=== PATIENT | male | born 1955 | race Two or more races ===

== ENCOUNTER → 2016-03-18 | Outpatient (CLI) | payer MEDICARE | LOC: RAD 11:14 | PROVIDERS: ATTEND Pain Medicine Pain Medicine | DX: M54.12 Radiculopathy, cervical region (principal) | CPT/HCPCS: 72141 ==

== ENCOUNTER 2016-11-24 17:10 | Inpatient (IN) | payer MEDICARE, OTHER ==
--- NOTE | 2016-11-24 18:10 | ER Document Report ---
ED Medical Screen (RME) - General Chief Complaint: Bloody Stools Stated Complaint: RECTAL BLEEDING,ABDOMINAL PAIN Time Seen by Provider: 11/24/16 18:07 Notes: Patient is a 61 year old male who presents to the ED complaining of blood in his stool, two episodes today. denies previous h/o GI bleed, hemorrhoids. denies n/v/d/c, abdominal pain h/o kidney stones TRAVEL OUTSIDE OF THE [place] IN LAST 30 DAYS: No - Related Data Allergies/Adverse Reactions: No Known Allergies Allergy (Verified 11/24/16 17:14) Past Medical History Renal/ Medical History: Reports: Hx Kidney Stones - Left ureteral. Denies: Hx Peritoneal Dialysis - Immunizations Hx Diphtheria, Pertussis, Tetanus Vaccination: Yes Physical Exam - Vital signs Vitals: Temp Pulse Resp BP Pulse Ox 98.6 F 62 14 122/80 98 11/24/16 17:14 11/24/16 17:14 11/24/16 17:14 11/24/16 17:14 11/24/16 17:14 - Respiratory Respiratory status: No respiratory distress Chest status: Nontender Breath sounds: Normal Chest palpation: Normal - Cardiovascular Rhythm: Regular Heart sounds: Normal auscultation, S1 appreciated, S2 appreciated Murmur: No - Abdominal Inspection: Normal Distension: No distension Bowel sounds: Normal Tenderness: Nontender Course - Vital Signs Vital signs: Temp Pulse Resp BP Pulse Ox 98.6 F 62 14 122/80 98 11/24/16 17:14 11/24/16 17:14 11/24/16 17:14 11/24/16 17:14 11/24/16 17:14
[2016-11-24 19:28] LABS: ABSOLUTE BASOPHILS # (AUTO) 0.1 10^3/uL (0.0-0.2); ABSOLUTE EOSINOPHILS # (AUTO) 0.3 10^3/uL (0.0-0.6); ABSOLUTE LYMPHOCYTES (AUTO) 2.2 10^3/uL (0.5-4.7); ABSOLUTE MONOCYTES (AUTO) 0.6 10^3/uL (0.1-1.4); ABSOLUTE NEUT (AUTO) 3.8 10^3/uL (1.7-8.2); BASOPHILS % (AUTO) 1.1 % (0-2); EOSINOPHILS % (AUTO) 4.4 % (0-6); HEMATOCRIT 43.4 % (37.9-51.0); HEMOGLOBIN 14.9 g/dL (13.5-17.0); HGB HCT DIFFERENCE 1.3; LYMPHOCYTES % (AUTO) 31.8 % (13-45); MEAN CORPUSCULAR HEMOGLOBIN 32.5 pg (27.0-33.4); MEAN CORPUSCULAR HGB CONC 34.4 g/dL (32.0-36.0); MEAN CORPUSCULAR VOLUME 94 fl (80-97); MONOCYTES % (AUTO) 8.9 % (3-13); RED BLOOD COUNT 4.59 10^6/uL (4.35-5.55); RED CELL DISTRIBUTION WIDTH 14.8 % (11.5-14.0); SEGMENTED NEUTROPHILS % (AUTO) 53.8 % (42-78)
[2016-11-24 19:47] LABS: ALANINE AMINOTRANSFERASE 30 U/L (21-72); ALBUMIN 4.3 g/dL (3.5-5.0); ALKALINE PHOSPHATASE 108 U/L (38-126); ANION GAP 9 (5-19); ASPARTATE AMINO TRANSFERASE 24 U/L (17-59); BILIRUBIN,DIRECT 0.3 mg/dL (0.0-0.4); BILIRUBIN,TOTAL 0.5 mg/dL (0.2-1.3); BLOOD UREA NITROGEN 25 mg/dL (7-20); CALCIUM 10.4 mg/dL (8.4-10.2); CARBON DIOXIDE 28 mmol/L (22-30); CHLORIDE 105 mmol/L (98-107); CREATININE RESULT 1.11 mg/dL (0.52-1.25); GLUCOSE 63 mg/dL (75-110); POTASSIUM 4.7 mmol/L (3.6-5.0); SODIUM 142.2 mmol/L (137-145); TOTAL PROTEIN 7.2 g/dL (6.3-8.2)
[2016-11-24 19:54] LABS: LIPASE 2217.7 U/L (23-300)
[2016-11-24] MEDS ORDERED: NORMAL SALINE 1000 ML 2,000 ML IV ONE (21:33)
--- NOTE | 2016-11-24 21:35 | ER Document Report ---
ED General - General Chief Complaint: Bloody Stools Stated Complaint: RECTAL BLEEDING,ABDOMINAL PAIN Time Seen by Provider: 11/24/16 18:07 Notes: Patient is a 61-year-old male who presents emergency department complaining of 2 episodes of bright red bloody stools today. Patient states that he felt uncomfortable this afternoon with mild abdominal discomfort went to the bathroom and had 2 episodes of bright red blood in his stool. Otherwise he denies any vomiting, nausea, diarrhea or constipation. Patient states that he has had 2 normal bowel movements yesterday. Otherwise he denies any other recent illnesses. He states a couple of days ago he had left flank pain that was uncomfortable and consistent with his previous history of kidney stones. States he had 2 episodes of hematuria that have since resolved and he speculated that he is passed stone. Otherwise denies any fevers or chills. Otherwise healthy male and he follows with Dr. Aguirre for primary care TRAVEL OUTSIDE OF THE [place] IN LAST 30 DAYS: No - Related Data Allergies/Adverse Reactions: No Known Allergies Allergy (Verified 11/24/16 17:14) Past Medical History - Social History Smoking Status: Never Smoker Chew tobacco use (# tins/day): No Frequency of alcohol use: None Drug Abuse: None Family History: Reviewed & Not Pertinent Renal/ Medical History: Reports: Hx Kidney Stones - Left ureteral. Denies: Hx Peritoneal Dialysis Surgical Hx: Negative - Immunizations Hx Diphtheria, Pertussis, Tetanus Vaccination: Yes Review of Systems - Review of Systems Constitutional: No symptoms reported Gastrointestinal: See HPI Genitourinary: See HPI -: Yes All other systems reviewed and negative Physical Exam - Vital signs Vitals: Temp Pulse Resp BP Pulse Ox 98.6 F 62 14 122/80 98 11/24/16 17:14 11/24/16 17:14 11/24/16 17:14 11/24/16 17:14 11/24/16 17:14 - Notes Notes: PHYSICAL EXAM GENERAL: Alert, interacts well. HEAD: Normocephalic, atraumatic. EYES: Pupils equal, round, and reactive to light. Extraocular movements intact. ENT: Oral mucosa moist, tongue midline. NECK: Full range of motion. Supple. Trachea midline. LUNGS: Clear to auscultation bilaterally, no wheezes, rales, or rhonchi. No respiratory distress. HEART: Regular rate and rhythm. No murmurs, gallops, or rubs. ABDOMEN: Soft, nondistended, nontender. No guarding, rebound, or rigidity.. Bowel sounds present in all 4 quadrants. Rectal: No evidence of blood or hemorrhoids. Nontender to palpation. Anal sphincter tone intact. See lab results for stool guaiac EXTREMITIES: Moves all 4 extremities spontaneously. No edema, radial and dorsalis pedis pulses 2/4 bilaterally. No cyanosis. NEUROLOGICAL: Alert and oriented x4. Normal speech. PSYCH: Normal affect, normal mood. SKIN: Warm, dry, normal turgor. No rashes or lesions noted. Course - Re-evaluation Re-evalutation: 11/24/16 21:35 Patient is a 61-year-old male who is hemodynamically stable, no acute distress and afebrile. CBC without any evidence of leukocytosis or anemia. CMP without any evidence of abnormality and electrolytes, abnormalities in liver renal function. Lipase is elevated at 2200. Otherwise unremarkable . Patient to be sent for an ultrasound of the right upper quadrant and admit to primary care 11/24/16 21:39 Patient has been accepted by Dr. Aguirre for admission. Patient to be kept n.p.o. and admitted to [facility]. - Vital Signs Vital signs: Temp Pulse Resp BP Pulse Ox 98.6 F 62 20 149/92 H 100 11/24/16 17:14 11/24/16 17:14 11/25/16 00:13 11/25/16 00:13 11/25/16 00:13 - Laboratory Result Diagrams: 11/24/16 18:50 11/24/16 18:50 Laboratory results interpreted by me: 11/24/16 11/24/16 18:50 18:50 RDW 14.8 H BUN 25 H Glucose 63 L Calcium 10.4 H Lipase 2217.7 H - Diagnostic Test Radiology reviewed: Reports reviewed Discharge - Discharge Clinical Impression: Pancreatitis Qualifiers: Chronicity: acute Pancreatitis type: unspecified pancreatitis type Acute pancreatitis complication: unspecified Qualified Code(s): K85.90 - Acute pancreatitis without necrosis or infection, unspecified Condition: Stable Disposition: ADMITTED INPATIENT Admitting Provider: Hospitalist - Carla [facility] Admitted: [facility]
--- NOTE | 2016-11-24 23:36 | RADIOLOGY REPORT (SQ) ---
EXAM DESCRIPTION: U/S ABDOMEN LTD W/DOPPLER COMPLETED DATE/TIME: 11/24/2016 11:18 pm REASON FOR STUDY: elevated lipase COMPARISON: None. TECHNIQUE: Dynamic and static grayscale images acquired of the abdomen and recorded on PACS. Additio nal selected color Doppler and spectral images recorded. LIMITATIONS: None. FINDINGS: PANCREAS: The pancreas was incompletely visualized due to overlying bowel gas. The visual ized portions of the head and body of the pancreas showed no definite masses. LIVER: No masses. Echotexture normal. LIVER VASCULATURE: Normal blood flow is identified in the portal vein. GALLBLADDER: No stones. Normal wall thickness. No pericholecystic fluid. ULTRASOUND-DETECTED NASCIMENTO'S SIGN: Negative. INTRAHEPATIC DUCTS AND COMMON DUCT: CBD and intrahepatic ducts normal caliber. No filling defects. INFERIOR VENA CAVA: Normal flow. AORTA: No aneurysm. RIGHT KIDNEY: Normal size. Normal echogenicity. No solid or suspicious masses. No hydronephrosis. S mall echogenic focus is identified which I cannot exclude as a nonobstructing renal calculus PERITONEAL AND RIGHT PLEURAL SPACE: No ascites or effusions. OTHER: No other significant findings. IMPRESSION: The pancreas was incompletely visualized as noted above. Echogenic focus in the right k idney which I cannot exclude is a nonobstructing renal calculus. Other findings as noted above TECHNICAL DOCUMENTATION: JOB ID: [id number]- All Rights Reserved
[2016-11-24 23:44] LABS: MAGNESIUM 1.9 mg/dL (1.6-2.3); PHOSPHORUS 4.3 mg/dL (2.5-4.5)
[2016-11-24] MEDS: POTASSI CL 20 MEQ/D5-1/2NS 1L 1,000 ML IV PRN (23:50)
[2016-11-25 00:01] LABS: PROTHROMBIN TIME 13.6 SEC (11.4-15.4)
[2016-11-25 00:02] LABS: PARTIAL THROMBOPLASTIN TIME 34.1 SEC (23.5-35.8)
[2016-11-25 00:14] LABS: THYROID STIMULATING HORMONE 1.48 uIU/mL (0.47-4.68)
[2016-11-25 00:23] LABS: CREATINE KINASE MB 1.39 ng/mL (<4.55)
[2016-11-25 00:24] LABS: TROPONIN I < 0.012 ng/mL
[2016-11-25 01:51] LABS: APPEARANCE,URINE CLEAR; BILIRUBIN,URINE NEGATIVE (NEGATIVE); GLUCOSE, URINE NEGATIVE (NEGATIVE); KETONES,URINE TRACE mg/dL (NEGATIVE); LEUKOCYTE ESTERASE,URINE NEGATIVE (NEGATIVE); NITRITE,URINE NEGATIVE (NEGATIVE); PROTEIN,URINE NEGATIVE (NEGATIVE); URINE SPECIFIC GRAVITY 1.006; UROBILINOGEN,URINE NEGATIVE mg/dL (<2.0)
[2016-11-25 02:08] LABS: URINE BARBITURATES SCREEN NEGATIVE; URINE METHADONE SCREEN NEGATIVE; URINE OPIATES LOW NEGATIVE; URINE PHENCYCLIDINE SCREEN NEGATIVE
[2016-11-25] MEDS: HYDROMORPHONE HCL INJ/PF 2 MG/ML AMPULE IV PRN ×3 (02:09→13:19)
--- NOTE | 2016-11-25 04:32 | RADIOLOGY REPORT (SQ) ---
EXAM DESCRIPTION: CT ABD/PELVIS WITH IV ONLY COMPLETED DATE/TIME: 11/25/2016 1:31 am REASON FOR STUDY: ABDOMINAL PAIN COMPARISON: None. TECHNIQUE: CT scan of the abdomen and pelvis performed using helical scanning technique with dynamic intravenous contrast injection. No oral contrast. Images reviewed with lung, soft tissue, and bone windows. Reconstructed coronal and sagittal MPR images reviewed. Delayed images for evaluation of the urinary system also acquired. All images stored on PACS. All CT scanners at this facility use dose modulation, iterative reconstruction, and/or weight based d osing when appropriate to reduce radiation dose to as low as reasonably achievable (ALARA). [facility]: Dose Right [facility]: CareDose [facility]: Dose Right [facility]: Teradose 4D [facility]: [employer] CONTRAST TYPE AND DOSE: contrast/concentration: Isovue 370.00 mg/ml; Total Contrast Delivered: 77.0 ml; Total Saline Delivered: 67.0 ml RENAL FUNCTION: Creatinine 1.1 RADIATION DOSE: Up-to-date CT equipment and radiation dose reduction techniques were employed. CTDIv ol: 8.8 mGy. DLP: 949 mGy-cm.. LIMITATIONS: None. FINDINGS: LOWER CHEST: No significant findings. No nodules or infiltrates. Small atelectasis or sca r bilateral lung bases. LIVER: Normal size. No masses. No dilated ducts. SPLEEN: Normal size. No focal lesions. PANCREAS: No masses. No significant calcifications. No adjacent inflammation or peripancreatic fluid collections. Pancreatic duct not dilated. GALLBLADDER: No identified stones by CT criteria. No inflammatory changes to suggest cholecystitis. Mildly hydropic. ADRENAL GLANDS: No significant masses or asymmetry. RIGHT KIDNEY AND URETER: No solid masses. Several renal stones measuring up to 0.4 cm each. No hy dronephrosis or hydroureter. LEFT KIDNEY AND URETER: 0.4 cm left UVJ-bladder stone with mild -moderate left hydronephrosis -hydrou reter. Additional left renal stones measure up to 0.6 cm each. AORTA AND VESSELS: No aneurysm. No dissection. Renal arteries, SMA, celiac without stenosis. RETROPERITONEUM: No retroperitoneal adenopathy, hemorrhage or masses. BOWEL AND PERITONEAL CAVITY: No masses or inflammatory changes. No free fluid or peritoneal masses. APPENDIX: Normal. PELVIS: No mass. No free fluid. ABDOMINAL WALL: No masses. No hernias. BONES: Mild disc desiccation. Mild T12 and T11 anterior vertebral wedging. Moderate L4-5 disc desic cation. OTHER: No other significant finding. IMPRESSION: 0.4 cm left UVJ/ bladder stone with low-grade obstruction. Bilateral nephrolithiasis. TECHNICAL DOCUMENTATION: JOB ID: [id number] Quality ID # [id number]: Final reports with documentation of one or more dose reduction techniques (e.g., Au tomated exposure control, adjustment of the mA and/or kV according to patient size, use of iterative reconstruction technique) 2010 [employer]- All Rights Reserved
[2016-11-25 06:51] LABS: WHITE BLOOD COUNT 8.5 10^3/uL (4.0-10.5)
[2016-11-25 06:52] LABS: HEMATOCRIT 39.4 % (37.9-51.0); HGB HCT DIFFERENCE 2.6; MEAN CORPUSCULAR HEMOGLOBIN 32.8 pg (27.0-33.4); MEAN CORPUSCULAR VOLUME 93 fl (80-97); RED BLOOD COUNT 4.25 10^6/uL (4.35-5.55)
[2016-11-25 06:53] LABS: ABSOLUTE BASOPHILS # (AUTO) 0.1 10^3/uL (0.0-0.2); ABSOLUTE EOSINOPHILS # (AUTO) 0.3 10^3/uL (0.0-0.6); ABSOLUTE LYMPHOCYTES (AUTO) 2.7 10^3/uL (0.5-4.7); ABSOLUTE MONOCYTES (AUTO) 0.8 10^3/uL (0.1-1.4); ABSOLUTE NEUT (AUTO) 4.6 10^3/uL (1.7-8.2); BASOPHILS % (AUTO) 0.8 % (0-2); EOSINOPHILS % (AUTO) 3.9 % (0-6); LYMPHOCYTES % (AUTO) 31.9 % (13-45); MEAN CORPUSCULAR HGB CONC 35.5 g/dL (32.0-36.0); MONOCYTES % (AUTO) 8.9 % (3-13); RED CELL DISTRIBUTION WIDTH 14.4 % (11.5-14.0); SEGMENTED NEUTROPHILS % (AUTO) 54.5 % (42-78)
[2016-11-25 06:54] LABS: ALANINE AMINOTRANSFERASE 35 U/L (21-72); ALBUMIN 3.6 g/dL (3.5-5.0); ALKALINE PHOSPHATASE 100 U/L (38-126); AMYLASE 452 U/L (30-110); ANION GAP 7 (5-19); ASPARTATE AMINO TRANSFERASE 22 U/L (17-59); BILIRUBIN,DIRECT 0.3 mg/dL (0.0-0.4); BILIRUBIN,TOTAL 0.6 mg/dL (0.2-1.3); BLOOD UREA NITROGEN 18 mg/dL (7-20); CALCIUM 9.1 mg/dL (8.4-10.2); CARBON DIOXIDE 23 mmol/L (22-30); CHLORIDE 111 mmol/L (98-107); CHOLESTEROL 164.36 mg/dL (0-200); CREATINE KINASE 58 U/L (55-170); Direct HDL 42 mg/dL (>40); GLUCOSE 101 mg/dL (75-110); POTASSIUM 4.4 mmol/L (3.6-5.0); SODIUM 140.5 mmol/L (137-145); TOTAL PROTEIN 6.2 g/dL (6.3-8.2); TRIGLYCERIDES 94 mg/dL (<150)
[2016-11-25 07:05] LABS: DIRECT LDL 108 mg/dL (<100)
[2016-11-25 07:06] LABS: CREATINE KINASE MB 1.44 ng/mL (<4.55)
[2016-11-25 07:11] LABS: TROPONIN I < 0.012 ng/mL
[2016-11-25 07:15] LABS: LIPASE 9918.7 U/L (23-300)
[2016-11-25] MEDS: POTASSI CL 20 MEQ/D5-1/2NS 1L 1,000 ML IV PRN ×2 (13:22→22:52)
[2016-11-25] MEDS: ONDANSETRON HCL INJ/PF 4 MG/2 ML SDV IV PRN ×2 (14:09→22:52)
[2016-11-25 15:22] LABS: CREATINE KINASE MB 1.47 ng/mL (<4.55)
[2016-11-25 15:40] LABS: TROPONIN I < 0.012 ng/mL
--- NOTE | 2016-11-25 20:23 | PDOC H&P ---
History of Present Illness Admission Date/PCP: 11/24/16 22:54 YAN TOM MD History of Present Illness: SEVERIANO SEGUNDO is a 61 year old male, He came to the emergency room for evaluation of abdominal pain associated with passage of rosana hematochezia. He stated that he had episode of hematochezia, twice, the pain is in the upper abdomen. He also have a history of kidney stone and he recently had hematuria and he believed he passed a kidney stone. In the emergency room he was evaluated part of the evaluation included measurement of serum lipase, this was elevated at over 2000. The emergency room providers want patient admitted because of elevated serum lipase in the setting of abdominal pain, acute pancreatitis was suspected. I was called by the emergency room physician to have patient admitted to the hospital and I requested for a CAT scan of the abdomen and pelvis with IV contrast it showed normal-sized liver, normal-sized spleen, on the pancreas there was no masses there was no calcifications there was no adjacent inflammation or peripancreatic fluid collection the pancreatic duct not dilated, on the right kidney there is no solid masses there was several renal stones measuring up to 0.4 cm each there was no hydroureter or hydronephrosis. On the left kidney there was 0.4 cm left UVJ bladder stone with mild to moderate left hydronephrosis/hydroureter also found was a other left renal stones measures up to 0.6 cm each. Subsequent lipase that was drawn this morning has increased over 9000 from 2000 last night. Past Medical History Renal/ Medical History: Reports: Nephrolithiasis Psychiatric Medical History: Reports: Depression Social History Smoking Status: Never Smoker Frequency of Alcohol Use: None Hx Recreational Drug Use: No Drugs: None Hx Prescription Drug Abuse: No Family History Family History: Reviewed & Not Pertinent Parental Family History Reviewed: Yes Children Family History Reviewed: Yes Sibling(s) Family History Reviewed.: Yes Medication/Allergy Home Medications: Aspirin [Aspirin 81 mg Chewable Tablet] 81 mg PO DAILY 11/25/16 Citalopram Hydrobromide [Celexa 40 mg Tablet] 40 mg PO DAILY 11/25/16 Meloxicam [Mobic] 7.5 mg PO DAILY 11/25/16 Montelukast Sodium [Singulair 10 mg Tablet] 10 mg PO QHS 11/25/16 Multivitamin [Tab-A-Ti (Multiple Vitamin) Tablet] 1 tab PO DAILY 11/25/16 Oxycodone HCl/Acetaminophen [Percocet 10-325 Mg Tablet] 1 tab PO Q6HP PRN Tizanidine HCl [Zanaflex 4 Mg Tablet] 4 mg PO Q6HP PRN 11/25/16 Allergies/Adverse Reactions: No Known Allergies Allergy (Verified 11/24/16 17:14) Review of Systems Constitutional: ABSENT: chills, fever(s), headache(s), weight gain, weight loss Eyes: ABSENT: visual disturbances Ears: ABSENT: hearing changes Cardiovascular: ABSENT: chest pain, dyspnea on exertion, edema, orthropnea, palpitations Respiratory: ABSENT: cough, hemoptysis Gastrointestinal: PRESENT: abdominal pain, hematochezia Genitourinary: PRESENT: hematuria Musculoskeletal: ABSENT: joint swelling Integumentary: ABSENT: rash, wounds Neurological: ABSENT: abnormal gait, abnormal speech, confusion, dizziness, focal weakness, syncope Psychiatric: ABSENT: anxiety, depression, homidical ideation, suicidal ideation Endocrine: ABSENT: cold intolerance, heat intolerance, menstrual abnormalities, polydipsia, polyuria Hematologic/Lymphatic: ABSENT: easy bleeding, easy bruising, lymphadenopathy Physical Exam Vital Signs: Temp Pulse Resp BP Pulse Ox 97.3 F 52 L 20 139/74 H 99 11/25/16 15:44 11/25/16 19:42 11/25/16 15:44 11/25/16 15:44 11/25/16 15:44 Intake & Output 11/24/16 11/25/16 11/26/16 06:59 06:59 06:59 Intake Total 470 1298 Output Total 600 300 Balance -130 998 Weight 71 kg General appearance: PRESENT: mild distress Head exam: PRESENT: atraumatic, normocephalic Eye exam: PRESENT: conjunctiva pink, EOMI, PERRLA Ear exam: PRESENT: normal external ear exam Mouth exam: PRESENT: moist, tongue midline Neck exam: PRESENT: full ROM Respiratory exam: PRESENT: clear to auscultation [place] Cardiovascular exam: PRESENT: RRR, +S1, +S2 Pulses: PRESENT: normal dorsalis pedis pul, +2 pedal pulses bilateral Vascular exam: PRESENT: normal capillary refill GI/Abdominal exam: PRESENT: normal bowel sounds, soft, tenderness Rectal exam: PRESENT: deferred Neurological exam: PRESENT: alert, awake, oriented to person, oriented to place , oriented to time, oriented to situation, CN II-XII grossly intact. ABSENT: motor sensory deficit Psychiatric exam: PRESENT: appropriate affect, normal mood Skin exam: PRESENT: dry, intact, warm Results Laboratory Results: 11/25/16 06:30 11/25/16 06:30 11/24/16 11/25/16 11/25/16 23:41 01:30 06:30 WBC RBC Hgb Hct MCV MCH MCHC RDW Plt Count Seg Neutrophils % Lymphocytes % Monocytes % Eosinophils % Basophils % Absolute Neutrophils Absolute Lymphocytes Absolute Monocytes Absolute Eosinophils Absolute Basophils Sodium 140.5 Potassium 4.4 Chloride 111 H Carbon Dioxide 23 Anion Gap 7 BUN 18 Creatinine 0.80 Est GFR ( Amer) > 60 Est GFR (Non-Af Amer) > 60 Glucose 101 Calcium 9.1 Total Bilirubin 0.6 AST 22 ALT 35 Alkaline Phosphatase 100 Ammonia < 8.7 L Total Protein 6.2 L Albumin 3.6 Triglycerides 94 Cholesterol 164.36 LDL Cholesterol Direct 108 H VLDL Cholesterol 19.0 HDL Cholesterol 42 Amylase 452 H Lipase 9918.7 H Urine Color STRAW Urine Appearance CLEAR Urine pH 7.0 Ur Specific [place] 1.006 Urine Protein NEGATIVE Urine Glucose (UA) NEGATIVE Urine Ketones TRACE H Urine Blood NEGATIVE Urine Nitrite NEGATIVE Ur Leukocyte Esterase NEGATIVE Urine WBC (Auto) 1 Urine RBC (Auto) 1 11/25/16 06:30 WBC 8.5 RBC 4.25 L Hgb 14.0 Hct 39.4 MCV 93 MCH 32.8 MCHC 35.5 RDW 14.4 H Plt Count 231 Seg Neutrophils % 54.5 Lymphocytes % 31.9 Monocytes % 8.9 Eosinophils % 3.9 Basophils % 0.8 Absolute Neutrophils 4.6 Absolute Lymphocytes 2.7 Absolute Monocytes 0.8 Absolute Eosinophils 0.3 Absolute Basophils 0.1 Sodium Potassium Chloride Carbon Dioxide Anion Gap BUN Creatinine Est GFR ( Amer) Est GFR (Non-Af Amer) Glucose Calcium Total Bilirubin AST ALT Alkaline Phosphatase Ammonia Total Protein Albumin Triglycerides Cholesterol LDL Cholesterol Direct VLDL Cholesterol HDL Cholesterol Amylase Lipase Urine Color Urine Appearance Urine pH Ur Specific [place] Urine Protein Urine Glucose (UA) Urine Ketones Urine Blood Urine Nitrite Ur Leukocyte Esterase Urine WBC (Auto) Urine RBC (Auto) 11/24/16 11/24/16 11/25/16 23:41 23:41 06:30 Creatine Kinase 61 58 CK-MB (CK-2) 1.39 Troponin I < 0.012 11/25/16 11/25/16 11/25/16 06:30 13:18 13:18 Creatine Kinase 61 CK-MB (CK-2) 1.44 1.47 Troponin I < 0.012 < 0.012 Impressions: Abdomen Ultrasound 11/24/16 21:10 IMPRESSION: The pancreas was incompletely visualized as noted above. Echogenic focus in the right kidney which I cannot exclude is a nonobstructing renal calculus. Other findings as noted above Abdomen/Pelvis CT 11/25/16 00:00 IMPRESSION: 0.4 cm left UVJ/ bladder stone with low-grade obstruction. Bilateral nephrolithiasis. Assessment & Plan - Diagnosis (1) Acute pancreatitis Qualifiers: Pancreatitis type: unspecified pancreatitis type Acute pancreatitis complication: no infection or necrosis Qualified Code(s): K85.90 - Acute pancreatitis without necrosis or infection, unspecified Is this a current diagnosis for this admission?: Yes Plan: Patient have no gallstones, he has no history of alcohol abuse or dependence, patient have no history of hypertriglyceridemia, patient is not on any medication known to cause acute pancreatitis, the CAT scan did not show any necrosis, infection or complication of pancreatitis. The exact etiology of the acute pancreatitis is not clear Patient will be kept n.p.o., serial monitoring of lipase ,pain control with Dilaudid (2) Ureteropelvic junction calculus Is this a current diagnosis for this admission?: Yes Plan: The CAT scan showed 6 mm calculus in the vesicular ureteric junction associated with left hydronephrosis, 24-hour urine collection for metabolites no acute colic kidney stone will be ordered (3) Hydronephrosis, left Is this a current diagnosis for this admission?: Yes
[2016-11-26] MEDS: HYDROMORPHONE HCL INJ/PF 2 MG/ML AMPULE IV PRN ×3 (00:07→15:52)
[2016-11-26 05:00] LABS: ABSOLUTE BASOPHILS # (AUTO) 0.1 10^3/uL (0.0-0.2); ABSOLUTE EOSINOPHILS # (AUTO) 0.2 10^3/uL (0.0-0.6); ABSOLUTE LYMPHOCYTES (AUTO) 2.2 10^3/uL (0.5-4.7); ABSOLUTE MONOCYTES (AUTO) 0.8 10^3/uL (0.1-1.4); ABSOLUTE NEUT (AUTO) 5.4 10^3/uL (1.7-8.2); BASOPHILS % (AUTO) 0.6 % (0-2); EOSINOPHILS % (AUTO) 1.8 % (0-6); HEMATOCRIT 40.2 % (37.9-51.0); HEMOGLOBIN 13.9 g/dL (13.5-17.0); HGB HCT DIFFERENCE 1.5; MEAN CORPUSCULAR HEMOGLOBIN 32.5 pg (27.0-33.4); MEAN CORPUSCULAR HGB CONC 34.5 g/dL (32.0-36.0); MEAN CORPUSCULAR VOLUME 94 fl (80-97); MONOCYTES % (AUTO) 8.8 % (3-13); RED BLOOD COUNT 4.28 10^6/uL (4.35-5.55); RED CELL DISTRIBUTION WIDTH 14.4 % (11.5-14.0); SEGMENTED NEUTROPHILS % (AUTO) 62.8 % (42-78); WHITE BLOOD COUNT 8.6 10^3/uL (4.0-10.5)
[2016-11-26 05:08] LABS: ALANINE AMINOTRANSFERASE 28 U/L (21-72); ALBUMIN 3.7 g/dL (3.5-5.0); ALKALINE PHOSPHATASE 101 U/L (38-126); AMYLASE 259 U/L (30-110); ANION GAP 8 (5-19); ASPARTATE AMINO TRANSFERASE 21 U/L (17-59); BILIRUBIN,DIRECT 0.3 mg/dL (0.0-0.4); BILIRUBIN,TOTAL 0.5 mg/dL (0.2-1.3); BLOOD UREA NITROGEN 12 mg/dL (7-20); CALCIUM 9.7 mg/dL (8.4-10.2); CARBON DIOXIDE 23 mmol/L (22-30); CHLORIDE 108 mmol/L (98-107); CREATININE RESULT 0.73 mg/dL (0.52-1.25); GLUCOSE 105 mg/dL (75-110); POTASSIUM 4.5 mmol/L (3.6-5.0); SODIUM 138.5 mmol/L (137-145); TOTAL PROTEIN 6.4 g/dL (6.3-8.2)
[2016-11-26 05:24] LABS: LIPASE 3098.4 U/L (23-300)
[2016-11-26] MEDS: POTASSI CL 20 MEQ/D5-1/2NS 1L 1,000 ML IV PRN ×2 (11:42→23:34)
--- NOTE | 2016-11-26 14:56 | PDOC PROGRESS REPORT ---
Subjective Progress Note for:: 11/26/16 Subjective:: He was admitted yesterday for the management of acute pancreatitis, the serum lipase is down today to 3000, patient is still n.p.o. He also have kidney stone presently been evaluated for metabolic cause of the recurrent kidney stone 24 urine collection is in progress. Physical Exam Vital Signs: Temp Pulse Resp BP Pulse Ox 97.9 F 58 L 22 H 141/79 H 97 11/26/16 11:12 11/26/16 11:12 11/26/16 11:12 11/26/16 11:12 11/26/16 11:12 Intake & Output 11/25/16 11/26/16 11/27/16 06:59 06:59 06:59 Intake Total 470 2416 0 Output Total 600 1400 250 Balance -130 1016 -250 Weight 71 kg 70.3 kg General appearance: PRESENT: no acute distress, well-developed, well-nourished Head exam: PRESENT: atraumatic, normocephalic Ear exam: PRESENT: normal external ear exam Mouth exam: PRESENT: moist, tongue midline Neck exam: PRESENT: full ROM Respiratory exam: PRESENT: clear to auscultation [place] Cardiovascular exam: PRESENT: RRR, +S1, +S2 Pulses: PRESENT: normal dorsalis pedis pul, +2 pedal pulses bilateral Vascular exam: PRESENT: normal capillary refill GI/Abdominal exam: PRESENT: normal bowel sounds, soft Rectal exam: PRESENT: deferred Neurological exam: PRESENT: alert, awake, oriented to person, oriented to place , oriented to time, oriented to situation, CN II-XII grossly intact Psychiatric exam: PRESENT: appropriate affect, normal mood Skin exam: PRESENT: dry, intact, warm Results Laboratory Results: 11/26/16 04:24 11/26/16 04:24 11/26/16 11/26/16 04:24 04:24 WBC 8.6 RBC 4.28 L Hgb 13.9 Hct 40.2 MCV 94 MCH 32.5 MCHC 34.5 RDW 14.4 H Plt Count 232 Seg Neutrophils % 62.8 Lymphocytes % 26.0 Monocytes % 8.8 Eosinophils % 1.8 Basophils % 0.6 Absolute Neutrophils 5.4 Absolute Lymphocytes 2.2 Absolute Monocytes 0.8 Absolute Eosinophils 0.2 Absolute Basophils 0.1 Sodium 138.5 Potassium 4.5 Chloride 108 H Carbon Dioxide 23 Anion Gap 8 BUN 12 Creatinine 0.73 Est GFR ( Amer) > 60 Est GFR (Non-Af Amer) > 60 Glucose 105 Calcium 9.7 Total Bilirubin 0.5 AST 21 ALT 28 Alkaline Phosphatase 101 Total Protein 6.4 Albumin 3.7 Amylase 259 H Lipase 3098.4 H 11/24/16 11/24/16 11/25/16 23:41 23:41 06:30 Creatine Kinase 61 58 CK-MB (CK-2) 1.39 Troponin I < 0.012 11/25/16 11/25/16 11/25/16 06:30 13:18 13:18 Creatine Kinase 61 CK-MB (CK-2) 1.44 1.47 Troponin I < 0.012 < 0.012 Impressions: Abdomen Ultrasound 11/24/16 21:10 IMPRESSION: The pancreas was incompletely visualized as noted above. Echogenic focus in the right kidney which I cannot exclude is a nonobstructing renal calculus. Other findings as noted above Abdomen/Pelvis CT 11/25/16 00:00 IMPRESSION: 0.4 cm left UVJ/ bladder stone with low-grade obstruction. Bilateral nephrolithiasis. Assessment & Plan - Diagnosis (1) Acute pancreatitis Qualifiers: Pancreatitis type: unspecified pancreatitis type Acute pancreatitis complication: no infection or necrosis Qualified Code(s): K85.90 - Acute pancreatitis without necrosis or infection, unspecified Is this a current diagnosis for this admission?: Yes Plan: Continue n.p.o., continue IV fluid, continue pain management (2) Ureteropelvic junction calculus Is this a current diagnosis for this admission?: Yes (3) Hydronephrosis, left Is this a current diagnosis for this admission?: Yes
[2016-11-26] MEDS ORDERED: ACETAMINOPHEN 325 MG TABLET ONE (17:56)
[2016-11-26] MEDS: ONDANSETRON HCL INJ/PF 4 MG/2 ML SDV IV PRN (18:10)
[2016-11-27] MEDS: HYDROMORPHONE HCL INJ/PF 2 MG/ML AMPULE IV PRN ×4 (02:55→23:18)
[2016-11-27] MEDS: ONDANSETRON HCL INJ/PF 4 MG/2 ML SDV IV PRN ×3 (03:04→23:18)
[2016-11-27 05:26] LABS: ABSOLUTE BASOPHILS # (AUTO) 0.1 10^3/uL (0.0-0.2); ABSOLUTE EOSINOPHILS # (AUTO) 0.2 10^3/uL (0.0-0.6); ABSOLUTE MONOCYTES (AUTO) 0.8 10^3/uL (0.1-1.4); ABSOLUTE NEUT (AUTO) 6.2 10^3/uL (1.7-8.2); BASOPHILS % (AUTO) 0.6 % (0-2); EOSINOPHILS % (AUTO) 2.3 % (0-6); HEMATOCRIT 42.2 % (37.9-51.0); HEMOGLOBIN 14.7 g/dL (13.5-17.0); HGB HCT DIFFERENCE 1.9; LYMPHOCYTES % (AUTO) 21.6 % (13-45); MEAN CORPUSCULAR HEMOGLOBIN 32.7 pg (27.0-33.4); MEAN CORPUSCULAR HGB CONC 34.8 g/dL (32.0-36.0); MEAN CORPUSCULAR VOLUME 94 fl (80-97); MONOCYTES % (AUTO) 8.3 % (3-13); RED CELL DISTRIBUTION WIDTH 14.3 % (11.5-14.0); SEGMENTED NEUTROPHILS % (AUTO) 67.2 % (42-78); WHITE BLOOD COUNT 9.1 10^3/uL (4.0-10.5)
[2016-11-27 05:47] LABS: ALANINE AMINOTRANSFERASE 32 U/L (21-72); ALBUMIN 4.3 g/dL (3.5-5.0); ALKALINE PHOSPHATASE 112 U/L (38-126); AMYLASE 180 U/L (30-110); ANION GAP 9 (5-19); ASPARTATE AMINO TRANSFERASE 24 U/L (17-59); BILIRUBIN,DIRECT 0.3 mg/dL (0.0-0.4); BILIRUBIN,TOTAL 0.6 mg/dL (0.2-1.3); BLOOD UREA NITROGEN 10 mg/dL (7-20); CALCIUM 9.9 mg/dL (8.4-10.2); CARBON DIOXIDE 27 mmol/L (22-30); CHLORIDE 105 mmol/L (98-107); CREATININE RESULT 0.83 mg/dL (0.52-1.25); GLUCOSE 111 mg/dL (75-110); POTASSIUM 4.6 mmol/L (3.6-5.0); SODIUM 141.1 mmol/L (137-145)
[2016-11-27] MEDS: POTASSI CL 20 MEQ/D5-1/2NS 1L 1,000 ML IV PRN ×2 (09:19→20:01)
--- NOTE | 2016-11-27 12:27 | PDOC PROGRESS REPORT ---
Subjective Progress Note for:: 11/27/16 Subjective:: Patient was seen by the bedside, the lipase from today's lab work is 2087, he has been n.p.o. since admission we will challenge his GI tract with clear liquid diet Physical Exam Vital Signs: Temp Pulse Resp BP Pulse Ox 97.9 F 53 L 20 150/80 H 93 11/27/16 11:47 11/27/16 11:47 11/27/16 11:47 11/27/16 11:47 11/27/16 11:47 Intake & Output 11/26/16 11/27/16 11/28/16 06:59 06:59 06:59 Intake Total 2416 2100 0 Output Total 1400 2050 Balance 1016 50 0 Weight 70.3 kg 68.3 kg General appearance: PRESENT: no acute distress Eye exam: PRESENT: PERRLA Respiratory exam: PRESENT: clear to auscultation aparna Cardiovascular exam: PRESENT: +S1, +S2 GI/Abdominal exam: PRESENT: soft Neurological exam: PRESENT: alert, CN II-XII grossly intact Results Laboratory Results: 11/27/16 04:47 11/27/16 04:47 11/27/16 11/27/16 04:47 04:47 WBC 9.1 RBC 4.50 Hgb 14.7 Hct 42.2 MCV 94 MCH 32.7 MCHC 34.8 RDW 14.3 H Plt Count 230 Seg Neutrophils % 67.2 Lymphocytes % 21.6 Monocytes % 8.3 Eosinophils % 2.3 Basophils % 0.6 Absolute Neutrophils 6.2 Absolute Lymphocytes 2.0 Absolute Monocytes 0.8 Absolute Eosinophils 0.2 Absolute Basophils 0.1 Sodium 141.1 Potassium 4.6 Chloride 105 Carbon Dioxide 27 Anion Gap 9 BUN 10 Creatinine 0.83 Est GFR ( Amer) > 60 Est GFR (Non-Af Amer) > 60 Glucose 111 H Calcium 9.9 Total Bilirubin 0.6 AST 24 ALT 32 Alkaline Phosphatase 112 Total Protein 7.0 Albumin 4.3 Amylase 180 H Lipase 8.0 H 11/25/16 01:30 Clean Catch Midstream Urine Culture - Final NO GROWTH 2 DAYS 11/24/16 11/24/16 11/25/16 23:41 23:41 06:30 Creatine Kinase 61 58 CK-MB (CK-2) 1.39 Troponin I < 0.012 11/25/16 11/25/1611/25/17 06:30 13:18 13:18 Creatine Kinase 61 CK-MB (CK-2) 1.44 1.47 Troponin I < 0.012 < 0.012 Impressions: Abdomen Ultrasound 11/24/16 21:10 IMPRESSION: The pancreas was incompletely visualized as noted above. Echogenic focus in the right kidney which I cannot exclude is a nonobstructing renal calculus. Other findings as noted above Abdomen/Pelvis CT 11/25/16 00:00 IMPRESSION: 0.4 cm left UVJ/ bladder stone with low-grade obstruction. Bilateral nephrolithiasis. Assessment & Plan - Diagnosis (1) Acute pancreatitis Qualifiers: Pancreatitis type: unspecified pancreatitis type Acute pancreatitis complication: no infection or necrosis Qualified Code(s): K85.90 - Acute pancreatitis without necrosis or infection, unspecified Is this a current diagnosis for this admission?: Yes (2) Ureteropelvic junction calculus Is this a current diagnosis for this admission?: Yes (3) Hydronephrosis, left Is this a current diagnosis for this admission?: Yes - Plan Summary Plan Summary: Continue present treatment regimen. Clear liquid diet, patient wants PSA level checked
[2016-11-27] MEDS ORDERED: INFLUENZA ADLT QUAD (36MOS+) 2017-18 VAC 0.5 ML SYR IM PRN (15:40)
[2016-11-28] MEDS: POTASSI CL 20 MEQ/D5-1/2NS 1L 1,000 ML IV PRN ×2 (06:25→16:52)
--- NOTE | 2016-11-28 20:35 | PDOC DISCHARGE SUMMARY ---
General - Admit/Disc Date/PCP Admission Date/Primary Care Provider: 11/24/16 22:54 YAN OTM MD Discharge Date: 11/28/16 - Discharge Diagnosis (1) Acute pancreatitis Is this a current diagnosis for this admission?: Yes (2) Ureteropelvic junction calculus Is this a current diagnosis for this admission?: Yes (3) Hydronephrosis, left Is this a current diagnosis for this admission?: Yes - Additional Information Discharge Diet: As Tolerated Home Medications: Aspirin [Aspirin 81 mg Chewable Tablet] 81 mg PO DAILY 11/25/16 Citalopram Hydrobromide [Celexa 40 mg Tablet] 40 mg PO DAILY 11/25/16 Meloxicam [Mobic] 7.5 mg PO DAILY 11/25/16 Montelukast Sodium [Singulair 10 mg Tablet] 10 mg PO QHS 11/25/16 Multivitamin [Tab-A-Ti (Multiple Vitamin) Tablet] 1 tab PO DAILY 11/25/16 Oxycodone HCl/Acetaminophen [Percocet 10-325 mg Tablet] 1 tab PO Q6HP PRN Tizanidine HCl [Zanaflex 4 mg Tablet] 4 mg PO Q6HP PRN 11/25/16 History of Present Illness History of Present Illness: SEVERIANO SEGUNDO is a 61 year old male, He came to the emergency room for evaluation of abdominal pain associated with passage of rosana hematochezia. He stated that he had episode of hematochezia, twice, the pain is in the upper abdomen. He also have a history of kidney stone and he recently had hematuria and he believed he passed a kidney stone. In the emergency room he was evaluated part of the evaluation included measurement of serum lipase, this was elevated at over 2000. The emergency room providers want patient admitted because of elevated serum lipase in the setting of abdominal pain, acute pancreatitis was suspected. I was called by the emergency room physician to have patient admitted to the hospital and I requested for a CAT scan of the abdomen and pelvis with IV contrast it showed normal-sized liver, normal-sized spleen, on the pancreas there was no masses there was no calcifications there was no adjacent inflammation or peripancreatic fluid collection the pancreatic duct not dilated, on the right kidney there is no solid masses there was several renal stones measuring up to 0.4 cm each there was no hydroureter or hydronephrosis. On the left kidney there was 0.4 cm left UVJ bladder stone with mild to moderate left hydronephrosis/hydroureter also found was a other left renal stones measures up to 0.6 cm each. Subsequent lipase that was drawn this morning has increased over 9000 from 1999 last night. Hospital Course Hospital Course: Patient was admitted for the management of acute pancreatitis, on admission the serum lipase was over 9000 she was kept n.p.o. until last night when he was challenged with clear liquid diet, it seems that patient is tolerating the clear liquid diet very well. The serum lipase is 332 today which is near- normal he is asymptomatic and he would like to be discharged him today. On admission he had a CAT scan of the abdomen and pelvis done, it showed a stone in the UV junction, he passed the stone during this hospital admission. 24 urine collection was done to assess for metabolic cause of recurrent kidney stone. Physical Exam Vital Signs: Temp Pulse Resp BP Pulse Ox 98.3 F 62 18 127/74 H 100 11/28/16 15:48 11/28/16 15:48 11/28/16 15:48 11/28/16 15:48 11/28/16 15:48 Intake & Output 11/27/16 11/28/16 11/29/16 06:59 06:59 06:59 Intake Total 2100 2450 4245 Output Total 2050 0 2150 Balance 50 2450 2095 Weight 68.3 kg 68.2 kg General appearance: PRESENT: no acute distress, well-developed, well-nourished Head exam: PRESENT: atraumatic, normocephalic Eye exam: PRESENT: conjunctiva pink, EOMI, PERRLA Ear exam: PRESENT: normal external ear exam Mouth exam: PRESENT: moist, tongue midline Neck exam: PRESENT: full ROM Respiratory exam: PRESENT: clear to auscultation [place] Cardiovascular exam: PRESENT: RRR, +S1, +S2 Pulses: PRESENT: normal dorsalis pedis pul, +2 pedal pulses bilateral Vascular exam: PRESENT: normal capillary refill GI/Abdominal exam: PRESENT: normal bowel sounds, soft Rectal exam: PRESENT: deferred Neurological exam: PRESENT: alert, awake, oriented to person, oriented to place , oriented to time, oriented to situation, CN II-XII grossly intact Psychiatric exam: PRESENT: appropriate affect, normal mood Skin exam: PRESENT: dry, intact, warm Results Laboratory Results: 11/27/16 04:47 11/27/16 04:47 11/28/16 09:37 Lipase 322.7 H 11/24/16 11/24/16 11/25/16 23:41 23:41 06:30 Creatine Kinase 61 58 CK-MB (CK-2) 1.39 Troponin I < 0.012 11/25/16 11/25/16 11/25/16 06:30 13:18 13:18 Creatine Kinase 61 CK-MB (CK-2) 1.44 1.47 Troponin I < 0.012 < 0.012 Impressions: Abdomen Ultrasound 11/24/16 21:10 IMPRESSION: The pancreas was incompletely visualized as noted above. Echogenic focus in the right kidney which I cannot exclude is a nonobstructing renal calculus. Other findings as noted above Abdomen/Pelvis CT 11/25/16 00:00 IMPRESSION: 0.4 cm left UVJ/ bladder stone with low-grade obstruction. Bilateral nephrolithiasis.
[2016-11-28 21:00] VITALS: BP 144/79
== END 2016-11-28 21:20 | disposition home or self-care (01) | DRG 439 ==
LOC: ER 17:10 → EH 22:54 → 3S 11-25 01:35
PROVIDERS: ADMIT Internal Medicine; ATTEND Internal Medicine
PROC: 3E0234Z Introduction of Serum, Toxoid and Vaccine into Muscle, Percutaneous Approach (ICD-10-PCS; principal; 2016-11-28)
DX: K85.90 Acute pancreatitis without necrosis or infection, unspecified (principal); N13.2 Hydronephrosis with renal and ureteral calculous obstruction; Z23 Encounter for immunization
CPT/HCPCS: 36415; 74177; 76705; 80048; 80053; 80061; 80076; 80307; 81001; 81003; 82131; 82140; 82150; 82272; 82340; 82507; 82550; 82553; 82570; 83036; 83690; 83735; 83935; 83945; 84100; 84105; 84153; 84156; 84300; 84392; 84439; 84443; 84484; 84560; 85025; 85610; 85730; 87045; 87086; 87205; 90686; 93976; 99285; J1170; J2405; J3480; J7030; L0120

== ENCOUNTER 2017-06-26 02:21 | Emergency (ER) | payer MEDICARE, OTHER ==
[2017-06-26] MEDS ORDERED: ONDANSETRON HCL INJ/PF 4 MG/2 ML SDV IV ONE (03:04)
[2017-06-26] MEDS ORDERED: KETOROLAC TROMETHAMINE INJ/PF 30 MG/1 ML SDV IV ONE (03:04)
[2017-06-26] MEDS ORDERED: NORMAL SALINE 1000 ML 1,000 ML IV ONE (03:05)
[2017-06-26] MEDS ORDERED: MORPHINE SULFATE 10 MG/ML INJ IV ONE (03:05)
--- NOTE | 2017-06-26 03:13 | ER Document Report ---
ED GI/ - General Chief Complaint: Flank Pain Stated Complaint: FLANK PAIN Time Seen by Provider: 06/26/17 02:55 Mode of Arrival: Ambulatory Information source: Patient Notes: Patient is a 61-year-old male who presents with sudden onset right-sided flank pain with radiation into his right groin. Patient reports he has a history of kidney stones and this feels similar. Patient states the pain started around midnight tonight and has accompanying nausea. Patient denies any vomiting, diarrhea, fevers, urinary frequency or dysuria. Patient reports medical history of pancreatitis, kidney stones, left hydronephrosis. Patient denies any abdominal surgeries. TRAVEL OUTSIDE OF THE [place] IN LAST 30 DAYS: No - Related Data Allergies/Adverse Reactions: No Known Allergies Allergy (Verified 11/24/16 17:14) Past Medical History - General Information source: Patient - Social History Smoking Status: Former Smoker Family History: Reviewed & Not Pertinent Renal/ Medical History: Reports: Hx Kidney Stones - Left ureteral. Denies: Hx Peritoneal Dialysis Psychiatric Medical History: Reports: Hx Depression - Immunizations Hx Diphtheria, Pertussis, Tetanus Vaccination: Yes Review of Systems - Review of Systems Constitutional: No symptoms reported EENT: No symptoms reported Cardiovascular: No symptoms reported Respiratory: No symptoms reported Gastrointestinal: No symptoms reported Genitourinary: Flank pain Male Genitourinary: No symptoms reported Musculoskeletal: No symptoms reported Skin: No symptoms reported Hematologic/Lymphatic: No symptoms reported Neurological/Psychological: No symptoms reported Physical Exam - Vital signs Vitals: Temp Pulse Resp BP Pulse Ox 98.0 F 55 L 20 185/79 H 99 06/26/17 02:28 06/26/17 02:28 06/26/17 02:28 06/26/17 02:28 06/26/17 02:28 Interpretation: Normal - Notes Notes: PHYSICAL EXAMINATION: GENERAL: Well-appearing, well-nourished and in no acute distress. HEAD: Atraumatic, normocephalic. EYES: Pupils equal round and reactive to light, extraocular movements intact, sclera anicteric, conjunctiva are normal. ENT: Nares patent, oropharynx clear without exudates. Moist mucous membranes. NECK: Normal range of motion, supple without lymphadenopathy LUNGS: Breath sounds clear to auscultation bilaterally and equal. No wheezes rales or rhonchi. HEART: Regular rate and rhythm without murmurs. ABDOMEN: Soft, tenderness to RLQ and right flank, no CVA tenderness, nondistended abdomen. No guarding, no rebound. No masses appreciated. Musculoskeletal: Normal range of motion, no pitting or edema. No cyanosis. NEUROLOGICAL: Cranial nerves grossly intact. Normal speech, normal gait. Normal sensory, motor exams PSYCH: Normal mood, normal affect. SKIN: Warm, Dry, normal turgor, no rashes or lesions noted. Course - Re-evaluation Re-evalutation: Patient is a 61-year-old male who presents with sudden onset right flank pain radiating into his right groin. Patient's exam is concerning for possible renal stone. Patient does have a history of renal stones in left-sided hydronephrosis since past and patient states that this pain does feel similar to when he had renal stones. Patient denies any vomiting diarrhea or fevers. Normal CBC. Electrolytes unremarkable. Lipase is elevated at 1452. Urinalysis has no leukocyte esterase, no nitrites and only trace bacteria. I have low suspicion for infectious stone. Patient reports that his pain is decreased significantly from the time of onset. CT limited shows a 0.3 cm right UVJ stone with a low-grade obstruction and bilateral nephrolithiasis. Appendix normal gallbladder unremarkable with no stones. Patient reports for the last time he had pancreatitis he was admitted however patient states that at that time he felt very sick with vomiting. Patient states that he feels well and is requesting to go home. Patient's vital signs remained stable, patient is normotensive, not tachycardic and not hypoxic. Patient will be discharged instructed to stay on a clear liquid diet for at least the next 24 hours and then he can advance his diet as tolerated. Patient will be given pain medications for both the pancreatitis as well as the passing kidney stone. As well as antiemetics for any nausea. Patient understands the need to return to the emergency department immediately if he develops fever, pain that is uncontrolled with his pain medication or feels unwell. Patient and his were at the bedside agrees to return if any of these symptoms present however they also state that they will be calling Dr. Tom for very close follow-up and will plan on having an appointment with him within the next 48 hours. - Vital Signs Vital signs: Temp Pulse Resp BP Pulse Ox 98.2 F 71 20 151/75 H 96 06/26/17 05:16 06/26/17 05:16 06/26/17 05:16 06/26/17 05:16 06/26/17 05:16 - Laboratory Result Diagrams: 06/26/17 03:08 06/26/17 03:08 Laboratory results interpreted by me: 06/26/17 06/26/17 06/26/17 03:08 03:08 04:00 RDW 14.5 H BUN 27 H Glucose 147 H Lipase 1452.5 H Urine Protein 100 H Urine Blood LARGE H Urine Urobilinogen 2.0 H Discharge - Discharge Clinical Impression: Kidney stone on right side Pancreatitis Qualifiers: Chronicity: acute Pancreatitis type: unspecified pancreatitis type Acute pancreatitis complication: no infection or necrosis Qualified Code(s): K85.90 - Acute pancreatitis without necrosis or infection, unspecified Condition: Stable Disposition: HOME, SELF-CARE Additional Instructions: Pancreatitis Pancreatitis is an inflammation of the pancreas, an organ at the back of your abdomen. The pancreas produces insulin and enzymes that digest your food. Pancreatitis can be caused by gallstones in the bile duct, by alcohol or viruses, or by excess fat or calcium in the blood stream. Occasionally, pancreatitis occurs when a stomach ulcer paige through into the pancreas. We try to find the cause of pancreatitis, but some tests can't be done until the pancreas heals. The usual symptoms of pancreatitis are pain in the pit of the stomach that goes straight through to the back, vomiting, and low-grade fever. Severe cases require hospital admission, but many patients with mild pancreatitis do well at home. You will probably need medicine for pain and for vomiting. Sometimes we prescribe medicine to decrease stomach acid secretion and to decrease flow of pancreatic juices. Start with a diet of clear liquids (soda pop, juices). When the pain is decreasing, you can add some simple starches (potato, toast, applesauce). Avoid proteins and fats until you are completely painfree. When you're better, your doctor may suggest treatment to prevent future pancreatitis (such as gallbladder removal). Avoid alcohol forever. Get immediate treatment for any future episodes. Contact your doctor at once or return here if you have increasing pain, shortness of breath, general swelling, increasing size of the abdomen, continued vomiting, muscle spasms, or other new symptoms. Kidney Stone You are passing or have passed a kidney stone. These stones are usually due to increased calcium or uric acid concentrations in your urine. Stones within the kidney itself are not painful. The pain occurs as the stone leaves the kidney to pass down the long tube, called the ureter, leading to the bladder. If the stone is small, it will usually pass by itself. Most patients can pass the stone at home. You will usually receive medications for pain, nausea or vomiting, and sometimes a medication to assist in passing the kidney stone. However, if the pain is very severe or if vomiting prevents you from taking oral pain medications, you may need to return for further treatment. Drink three or four quarts of fluids per day. You will be given pain medication (if needed) and urine strainers. Strain all your urine to see if the stone passes. If your doctor has asked you to bring the stone in for analysis, return with the stone once it has passed. Return if pain or vomiting become severe, if you develop a high fever, if you are unable to pass your urine, or if other unusual symptoms occur. Please take medications as prescribed for pain and nausea. Please call Dr. Tom this am for an appointment. Please return to the emergency department if you start developing fever, worsening pain not relieved by the pain medication, vomiting or any other symptoms concerning to you. Prescriptions: Morphine Sulfate [Morphine Ir 15 Mg Tablet] 15 mg PO Q4H PRN #16 tablet PRN Reason: For Pain Ondansetron [Zofran Odt 4 mg Tablet] 1 - 2 tab PO Q4H PRN #20 tab.rapdis PRN Reason: For Nausea/Vomiting Referrals: YAN TOM MD [ACTIVE STAFF] - Follow up as needed
[2017-06-26 03:24] LABS: ABSOLUTE BASOPHILS # (AUTO) 0.1 10^3/uL (0.0-0.2); ABSOLUTE EOSINOPHILS # (AUTO) 0.2 10^3/uL (0.0-0.6); ABSOLUTE LYMPHOCYTES (AUTO) 2.7 10^3/uL (0.5-4.7); ABSOLUTE MONOCYTES (AUTO) 0.7 10^3/uL (0.1-1.4); ABSOLUTE NEUT (AUTO) 5.7 10^3/uL (1.7-8.2); BASOPHILS % (AUTO) 1.1 % (0-2); EOSINOPHILS % (AUTO) 2.5 % (0-6); HEMATOCRIT 44.7 % (37.9-51.0); HEMOGLOBIN 15.3 g/dL (13.5-17.0); LYMPHOCYTES % (AUTO) 28.9 % (13-45); MEAN CORPUSCULAR HEMOGLOBIN 32.1 pg (27.0-33.4); MEAN CORPUSCULAR HGB CONC 34.3 g/dL (32.0-36.0); MEAN CORPUSCULAR VOLUME 93 fl (80-97); PLATELET COUNT 223 10^3/uL (150-450); RED BLOOD COUNT 4.78 10^6/uL (4.35-5.55); RED CELL DISTRIBUTION WIDTH 14.5 % (11.5-14.0); SEGMENTED NEUTROPHILS % (AUTO) 60.5 % (42-78); TOTAL CELLS COUNTED % (AUTO) 100 %; WHITE BLOOD COUNT 9.4 10^3/uL (4.0-10.5)
[2017-06-26 03:38] LABS: ALANINE AMINOTRANSFERASE 22 U/L (21-72); ALBUMIN 4.4 g/dL (3.5-5.0); ALKALINE PHOSPHATASE 115 U/L (38-126); ANION GAP 13 (5-19); ASPARTATE AMINO TRANSFERASE 20 U/L (17-59); BILIRUBIN,DIRECT 0.3 mg/dL (0.0-0.4); BILIRUBIN,TOTAL 0.3 mg/dL (0.2-1.3); BLOOD UREA NITROGEN 27 mg/dL (7-20); CALCIUM 9.9 mg/dL (8.4-10.2); CARBON DIOXIDE 26 mmol/L (22-30); CHLORIDE 106 mmol/L (98-107); GLUCOSE 147 mg/dL (75-110); LIPASE 1452.5 U/L (23-300); POTASSIUM 3.9 mmol/L (3.6-5.0); SODIUM 144.9 mmol/L (137-145); TOTAL PROTEIN 6.9 g/dL (6.3-8.2)
[2017-06-26 04:16] LABS: APPEARANCE,URINE CLOUDY; BILIRUBIN,URINE NEGATIVE (NEGATIVE); COLOR,URINE AMBER; GLUCOSE, URINE NEGATIVE (NEGATIVE); KETONES,URINE NEGATIVE (NEGATIVE); LEUKOCYTE ESTERASE,URINE NEGATIVE (NEGATIVE); NITRITE,URINE NEGATIVE (NEGATIVE); PROTEIN,URINE 100 mg/dL (NEGATIVE); URINE SPECIFIC GRAVITY 1.021
--- NOTE | 2017-06-26 04:25 | RADIOLOGY REPORT (SQ) ---
EXAM DESCRIPTION: CT LTD RENAL STONE PROTOCOL ON CLINICAL HISTORY: 61 years Male, right flank pain hx of renal calculi COMPARISON: 11.25.16 TECHNIQUE: No contrast. Coronal and sagittal reformat. This exam was performed according to our departmental dose-optimization program, which includes automated exposure control, adjustment of the mA and/or kV according to patient size and/or use of iterative reconstruction technique. FINDINGS: 0.3 cm right ureterovesicular junctional stone with moderate right hydronephrosis/mild hydroureter. Additional bilateral renal stones measure up to 0.6 cm on the left. Minimal chronic T11 intervertebral wedging, mild lumbar disc desiccation, mild scoliotic type curvature. Unremarkable gallbladder. Normal appendix. Small disc bulge between the L2 and S1 levels. Unenhanced lower thorax, abdominopelvic structures, and musculoskeleton appear otherwise grossly unremarkable. Impression: 0.3 cm right UVJ stone with low-grade obstruction. Bilateral nephrolithiasis.
[2017-06-26] MEDS ORDERED: ONDANSETRON ODT 4 MG TAB (6 TAB/ER DISP) PO PRN (05:00)
[2017-06-26] MEDS ORDERED: HYDROCODONE/ACETAMINOPHEN 5-325 MG (6 TAB/ER DISP) PO PRN (05:02)
[2017-06-26 05:21] VITALS: BP 151/75
== END 2017-06-26 05:29 | disposition home or self-care (01) ==
LOC: ER 02:21
DX: K85.90 Acute pancreatitis without necrosis or infection, unspecified (principal); N20.0 Calculus of kidney; R10.9 Unspecified abdominal pain; Z87.442 Personal history of urinary calculi; Z87.891 Personal history of nicotine dependence
CPT/HCPCS: 99284; 96361; 96374; 96375; 36415; 83690; 85025; 80053; 81001; 76380; J1885; J2270; J2405; J7030; A9270 ×2

== ENCOUNTER 2017-07-04 23:16 | Inpatient (IN) | payer MEDICARE, OTHER ==
[2017-07-04 23:48] LABS: ABSOLUTE BASOPHILS # (AUTO) 0.1 10^3/uL (0.0-0.2); ABSOLUTE EOSINOPHILS # (AUTO) 0.3 10^3/uL (0.0-0.6); ABSOLUTE LYMPHOCYTES (AUTO) 2.3 10^3/uL (0.5-4.7); ABSOLUTE MONOCYTES (AUTO) 0.7 10^3/uL (0.1-1.4); ABSOLUTE NEUT (AUTO) 5.9 10^3/uL (1.7-8.2); BASOPHILS % (AUTO) 0.8 % (0-2); EOSINOPHILS % (AUTO) 2.7 % (0-6); HEMATOCRIT 47.2 % (37.9-51.0); HEMOGLOBIN 15.8 g/dL (13.5-17.0); LYMPHOCYTES % (AUTO) 25.4 % (13-45); MEAN CORPUSCULAR HEMOGLOBIN 31.4 pg (27.0-33.4); MEAN CORPUSCULAR HGB CONC 33.5 g/dL (32.0-36.0); MEAN CORPUSCULAR VOLUME 94 fl (80-97); MONOCYTES % (AUTO) 7.6 % (3-13); PLATELET COUNT 247 10^3/uL (150-450); RED BLOOD COUNT 5.05 10^6/uL (4.35-5.55); RED CELL DISTRIBUTION WIDTH 14.5 % (11.5-14.0); SEGMENTED NEUTROPHILS % (AUTO) 63.5 % (42-78); TOTAL CELLS COUNTED % (AUTO) 100 %; WHITE BLOOD COUNT 9.3 10^3/uL (4.0-10.5)
[2017-07-05 00:03] LABS: ALANINE AMINOTRANSFERASE 29 U/L (21-72); ALBUMIN 4.8 g/dL (3.5-5.0); ALKALINE PHOSPHATASE 124 U/L (38-126); ANION GAP 13 (5-19); APPEARANCE,URINE CLEAR; ASPARTATE AMINO TRANSFERASE 20 U/L (17-59); BILIRUBIN,DIRECT 0.3 mg/dL (0.0-0.4); BILIRUBIN,TOTAL 0.3 mg/dL (0.2-1.3); BILIRUBIN,URINE NEGATIVE (NEGATIVE); BLOOD UREA NITROGEN 27 mg/dL (7-20); CALCIUM 10.8 mg/dL (8.4-10.2); CARBON DIOXIDE 29 mmol/L (22-30); CHLORIDE 106 mmol/L (98-107); COLOR,URINE YELLOW; GLUCOSE 113 mg/dL (75-110); GLUCOSE, URINE NEGATIVE (NEGATIVE); KETONES,URINE NEGATIVE (NEGATIVE); LEUKOCYTE ESTERASE,URINE NEGATIVE (NEGATIVE); LIPASE 494.7 U/L (23-300); NITRITE,URINE NEGATIVE (NEGATIVE); POTASSIUM 5.1 mmol/L (3.6-5.0); PROTEIN,URINE NEGATIVE (NEGATIVE); SODIUM 147.8 mmol/L (137-145); TOTAL PROTEIN 7.7 g/dL (6.3-8.2); URINE SPECIFIC GRAVITY 1.017; UROBILINOGEN,URINE NEGATIVE mg/dL (<2.0)
--- NOTE | 2017-07-05 00:27 | ER Document Report ---
ED General - General Mode of Arrival: Ambulatory Information source: Patient TRAVEL OUTSIDE OF THE [place] IN LAST 30 DAYS: No <AMARI BURTON - Last Filed: 07/05/17 00:39> <TATY TATE - Last Filed: 07/05/17 00:45> - General Chief Complaint: Nausea/Vomiting Stated Complaint: ABDOMINAL PAIN Time Seen by Provider: 07/05/17 00:16 Notes: 61 y.o. male with a PMHx of depression, kidney stones and pancreatitis presents to the ED with nausea, vomiting and abdominal pain of onset the day before yesterday and worsening since. Pt started vomiting around 1999 yesterday night and the first episode was brownish in color. Pt reports that his pain is somewhat similar to the time he had pancreatitis. Pt denies any diarrhea. at bedside states that he has been hurting for a while. Pt was seen here 10 days ago with pancreatitis and kidney stones and was discharged home. Pt's PCP is Dr. Aguirre. (AMARI BURTON) - Related Data Allergies/Adverse Reactions: No Known Allergies Allergy (Verified 11/24/16 17:14) Past Medical History - General Information source: Patient - Social History Smoking Status: Former Smoker Frequency of alcohol use: None Family History: Reviewed & Not Pertinent Renal/ Medical History: Reports: Hx Kidney Stones - Left ureteral. Denies: Hx Peritoneal Dialysis Psychiatric Medical History: Reports: Hx Depression - Immunizations Hx Diphtheria, Pertussis, Tetanus Vaccination: Yes <AMARI BURTON - Last Filed: 07/05/17 00:39> Review of Systems - Review of Systems Constitutional: No symptoms reported EENT: No symptoms reported Cardiovascular: No symptoms reported Respiratory: No symptoms reported Gastrointestinal: See HPI, Abdominal pain, Nausea, Vomiting. denies: Diarrhea Genitourinary: No symptoms reported Male Genitourinary: No symptoms reported Musculoskeletal: No symptoms reported Skin: No symptoms reported Hematologic/Lymphatic: No symptoms reported Neurological/Psychological: No symptoms reported -: Yes All other systems reviewed and negative <AMARI BURTON - Last Filed: 07/05/17 00:39> Physical Exam <AMARI BURTON - Last Filed: 07/05/17 00:39> <TATY TATE - Last Filed: 07/05/17 00:45> - Vital signs Vitals: Temp Pulse Resp BP Pulse Ox 98.4 F 54 L 20 157/83 H 98 07/04/17 23:39 07/04/17 23:39 07/04/17 23:39 07/04/17 23:39 07/04/17 23:39 - Notes Notes: Physical Exam: General: Alert, uncomfortable. HEENT: Normocephalic. Atraumatic. PERRL. Extraocular movements intact. Oropharynx clear. Mucus membranes dry. Neck: Supple. Non-tender. Respiratory: No respiratory distress. Clear and equal breath sounds bilaterally. Cardiovascular: Regular rate and rhythm. Abdominal: No distension. Normal Bowel Sounds. Tender to epigastric region and mid upper abdomen. Back: Non-tender. No deformity or step off. Extremities: Moves all four extremities. Upper extremities: Normal inspection. Normal ROM. Lower extremities: Normal inspection. No edema. Normal ROM. Neurological: Normal cognition. AAOx4. Normal speech. (AMARI BURTON) Course - Laboratory Result Diagrams: 07/04/17 23:30 07/04/17 23:30 <AMARI BURTON - Last Filed: 07/05/17 00:39> - Laboratory Result Diagrams: 07/04/17 23:30 07/04/17 23:30 - Consults Dr. Aguirre Time consulted: 00:30 Consulted provider: will see as inpatient <TATY TATE - Last Filed: 07/05/17 00:45> - Re-evaluation Re-evalutation: 07/05/17 00:43 The patient was admitted here in October 2016 with acute pancreatitis and a lipase of almost 10,000 which came down to normal by the time he was discharged. He was seen here 10 days ago with abdominal pain when he was passing a kidney stone, and had a lipase 1452 suggesting he also had pancreatitis. His pain has returned in the past few days and got acutely worse today. His lipase tonight was 495. He had been taking antacids with some relief of symptoms. It is unclear at this point if this is recurrent pancreatitis that is getting worse or becoming a chronic pancreatitis along with GERD worsening his symptoms. (TATY TATE) - Vital Signs Vital signs: Temp Pulse Resp BP Pulse Ox 98.4 F 54 L 20 157/83 H 98 07/04/17 23:39 07/04/17 23:39 07/04/17 23:39 07/04/17 23:39 07/04/17 23:39 - Laboratory Laboratory results interpreted by me: 07/04/17 07/04/17 07/04/17 23:30 23:30 23:30 RDW 14.5 H Sodium 147.8 H Potassium 5.1 H BUN 27 H Glucose 113 H Calcium 10.8 H Lipase 494.7 H Urine Blood MODERATE H Discharge <AMARI BURTON - Last Filed: 07/05/17 00:39> - Discharge Admitting Provider: [facility] Unit Admitted: Medical Floor <TATY TATE - Last Filed: 07/05/17 00:45> - Discharge Clinical Impression: Nephrolithiasis Abdominal pain Qualifiers: Abdominal location: epigastric Qualified Code(s): R10.13 - Epigastric pain Pancreatitis Qualifiers: Chronicity: acute Pancreatitis type: unspecified pancreatitis type Acute pancreatitis complication: unspecified Qualified Code(s): K85.90 - Acute pancreatitis without necrosis or infection, unspecified Condition: Stable Disposition: ADMITTED OBSERVATION Scribe Attestation: 07/05/17 00:45 I personally performed the services described in the documentation, reviewed and edited the documentation which was dictated to the scribe in my presence, and it accurately records my words and actions. (TATY TATE) Scribe Documentation - Scribe Written by Jagjitibe:: Francy Sandhu [phone] acting as scribe for :: Sarah <AMARI BURTON - Last Filed: 07/05/17 00:39>
[2017-07-05] MEDS ORDERED: LIDOCAINE 2% VISCOUS SOLN 20 ML UDCUP PO ONE (00:29)
[2017-07-05] MEDS ORDERED: NORMAL SALINE 1000 ML 1,000 ML IV ONE (00:29)
[2017-07-05] MEDS ORDERED: MAG HYDROX/AL HYDROX/SIMETH SUSP 30 ML UDCUP PO ONE (00:29)
[2017-07-05] MEDS ORDERED: ONDANSETRON HCL INJ/PF 4 MG/2 ML SDV IV ONE (00:29)
[2017-07-05] MEDS ORDERED: HYDROMORPHONE HCL INJ/PF 2 MG/ML AMPULE IV ONE (00:29)
[2017-07-05] MEDS ORDERED: ONDANSETRON HCL INJ/PF 4 MG/2 ML SDV IV PRN (03:11)
[2017-07-05] MEDS: MORPHINE SULFATE 10 MG/ML INJ IV PRN ×2 (03:40→08:59)
[2017-07-05] MEDS: DEXTROSE 5%-NORMAL SALINE 1,000 ML IV PRN ×2 (03:45→14:41)
[2017-07-05] MEDS ORDERED: OXYCODONE-ACETAMINOPHEN 5-325 MG TABLET PO PRN (04:20)
[2017-07-05] MEDS ORDERED: NORMAL SALINE 1000 ML 1,000 ML IV PRN (08:22)
[2017-07-05 09:04] LABS: ABSOLUTE BASOPHILS # (AUTO) 0.1 10^3/uL (0.0-0.2); ABSOLUTE EOSINOPHILS # (AUTO) 0.2 10^3/uL (0.0-0.6); ABSOLUTE LYMPHOCYTES (AUTO) 2.8 10^3/uL (0.5-4.7); ABSOLUTE MONOCYTES (AUTO) 0.7 10^3/uL (0.1-1.4); ABSOLUTE NEUT (AUTO) 3.6 10^3/uL (1.7-8.2); BASOPHILS % (AUTO) 1.2 % (0-2); EOSINOPHILS % (AUTO) 2.2 % (0-6); HEMATOCRIT 42.2 % (37.9-51.0); HEMOGLOBIN 14.3 g/dL (13.5-17.0); MEAN CORPUSCULAR HGB CONC 33.9 g/dL (32.0-36.0); MEAN CORPUSCULAR VOLUME 94 fl (80-97); MONOCYTES % (AUTO) 9.3 % (3-13); PLATELET COUNT 208 10^3/uL (150-450); RED BLOOD COUNT 4.47 10^6/uL (4.35-5.55); RED CELL DISTRIBUTION WIDTH 14.4 % (11.5-14.0); SEGMENTED NEUTROPHILS % (AUTO) 49.3 % (42-78); TOTAL CELLS COUNTED % (AUTO) 100 %; WHITE BLOOD COUNT 7.4 10^3/uL (4.0-10.5)
[2017-07-05 09:33] LABS: ALANINE AMINOTRANSFERASE 24 U/L (21-72); ALBUMIN 3.8 g/dL (3.5-5.0); ALKALINE PHOSPHATASE 92 U/L (38-126); AMYLASE 149 U/L (30-110); ANION GAP 9 (5-19); ASPARTATE AMINO TRANSFERASE 16 U/L (17-59); BILIRUBIN,DIRECT 0.2 mg/dL (0.0-0.4); BILIRUBIN,TOTAL 0.3 mg/dL (0.2-1.3); BLOOD UREA NITROGEN 21 mg/dL (7-20); CALCIUM 9.3 mg/dL (8.4-10.2); CARBON DIOXIDE 27 mmol/L (22-30); CHLORIDE 109 mmol/L (98-107); GLUCOSE 101 mg/dL (75-110); POTASSIUM 4.2 mmol/L (3.6-5.0); SODIUM 144.8 mmol/L (137-145); TOTAL PROTEIN 6.2 g/dL (6.3-8.2)
[2017-07-05 09:43] LABS: LIPASE 2032.9 U/L (23-300)
[2017-07-05] MEDS: MULTIVITAMIN TABLET PO SCH (10:01)
[2017-07-05] MEDS: ENOXAPARIN SODIUM INJ 40 MG/0.4 ML DISP.SYRIN SUBCUT SCH (10:02)
[2017-07-05] MEDS: ASPIRIN 81 MG TABLET, CHEWABLE PO SCH (10:04)
[2017-07-05] MEDS: MELOXICAM 7.5 MG TABLET PO SCH (10:05)
[2017-07-05] MEDS: CITALOPRAM HYDROBROMIDE 20 MG TABLET PO SCH (10:06)
[2017-07-05] MEDS: TIZANIDINE HCL 4 MG TABLET PO SCH ×2 (10:08→11:51)
--- NOTE | 2017-07-05 11:20 | RADIOLOGY REPORT (SQ) ---
EXAM DESCRIPTION: CT ABD/PELVIS NO ORAL OR IV COMPLETED DATE/TIME: 07/05/2017 10:30 am REASON FOR STUDY: kidney stones R10.84 GENERALIZED ABDOMINAL PAIN K85.00 IDIOPATHIC ACUTE PANCREAT ITIS WITHOUT NECROSIS OR INF COMPARISON: 06/26/2017 TECHNIQUE: CT scan of the abdomen and pelvis performed without intravenous or oral contrast. Images reviewed with lung, soft tissue, and bone windows. Reconstructed coronal and sagittal MPR images revi ewed. All images stored on PACS. All CT scanners at this facility use dose modulation, iterative reconstruction, and/or weight based d osing when appropriate to reduce radiation dose to as low as reasonably achievable (ALARA). [facility]: Dose Right [facility]: CareDose [facility]: Dose Right [facility]: Teradose 4D [facility]: Smart AFTER-MOUSE RADIATION DOSE: CT Rad equipment meets quality standard of care and radiation dose reduction techniq ues were employed. CTDIvol: 3.7 mGy. DLP: 183 mGy-cm.mGy. LIMITATIONS: None. FINDINGS: LOWER CHEST: No significant findings. No nodules or infiltrates. NON-CONTRASTED LIVER, SPLEEN, ADRENALS: Evaluation limited by lack of IV contrast. No identified sign ificant masses. PANCREAS: No masses. No peripancreatic inflammatory changes. GALLBLADDER: No identified stones by CT criteria. No inflammatory changes to suggest cholecystitis. RIGHT KIDNEY AND URETER: No suspicious masses. Assessment limited by lack of IV contrast. Renal jocelin culi measuring up to about 3 mm. No hydronephrosis or hydroureter. LEFT KIDNEY AND URETER: No suspicious masses. Assessment limited by lack of IV contrast. Renal calc allegra are measuring up to about 8 mm. No hydronephrosis or hydroureter. AORTA AND RETROPERITONEUM: No aneurysm. No retroperitoneal masses or adenopathy. BOWEL AND PERITONEAL CAVITY: No obvious masses or inflammatory changes. No free fluid. APPENDIX: Normal. PELVIS, BLADDER, AND ABDOMINAL WALL:No abnormal masses. No free fluid. Bladder normal. BONES: No significant findings. OTHER: No other significant finding. IMPRESSION: Nonobstructing renal calculi. COMMENT: Quality ID # [id number]: Final reports with documentation of one or more dose reduction techniques (e.g., Automated exposure control, adjustment of the mA and/or kV according to patient size, use of iterative reconstruction technique) TECHNICAL DOCUMENTATION: JOB ID: [id number]- All Rights Reserved Reading location - IP/workstation name: [email or web address]
--- NOTE | 2017-07-05 21:40 | RADIOLOGY REPORT (SQ) ---
EXAM DESCRIPTION: MRI ABDOMEN COMBO COMPLETED DATE/TIME: 07/05/2017 4:43 pm REASON FOR STUDY: recurrent acue pancreatitis R10.84 GENERALIZED ABDOMINAL PAIN K85.00 IDIOPATHIC ACUTE PANCREATITIS WITHOUT NECROSIS OR INF COMPARISON: CT scan same date TECHNIQUE: Multiplanar multisequence imaging performed without and with contrast including sagittal, axial and coronal T2, axial T1, axial gradient fat sat T1, axial, sagittal and coronal fat sat T1 po st contrast. CONTRAST TYPE AND DOSE: 20 mL Prohance. RENAL FUNCTION: GFR > 60. LIMITATIONS: None. FINDINGS: LIVER: Normal size. No masses. No dilated ducts. CBD normal. SPLEEN: Normal size. No focal lesions. PANCREAS: No masses. No adjacent inflammation. Pancreatic duct is dilated maximum diameter 4.4 mm. No etiology determined. GALLBLADDER: No masses. No stones. No gallbladder wall thickening or pericholecystic fluid. ADRENAL GLANDS: No significant masses or asymmetry. RIGHT KIDNEY AND URETER: No masses. No hydronephrosis. LEFT KIDNEY AND URETER: No masses. No hydronephrosis. AORTA AND VESSELS: No aneurysm. No dissection. Renal arteries, SMA, celiac without stenosis. RETROPERITONEUM: No retroperitoneal adenopathy, hemorrhage or masses. BOWEL: No visualized masses. No inflammation. No significant dilatation. ABDOMINAL WALL AND PERITONEUM: No hernias. No free fluid. BONES: No acute or significant findings. OTHER: No other significant finding. IMPRESSION: Dilated pancreatic duct without other findings. COMMENT: MRCP may be helpful to evaluate the anatomy of the common duct and pancreatic duct. TECHNICAL DOCUMENTATION: JOB ID: [id number] [employer]- All Rights Reserved Reading location - IP/workstation name: [email or web address]
[2017-07-05] MEDS ORDERED: MONTELUKAST SODIUM 10 MG TABLET PO SCH (22:00)
[2017-07-05] MEDS ORDERED: TIZANIDINE HCL 4 MG TABLET PO SCH (22:00)
[2017-07-06] MEDS: MORPHINE SULFATE 10 MG/ML INJ IV PRN (01:27)
[2017-07-06] MEDS: DEXTROSE 5%-NORMAL SALINE 1,000 ML IV PRN ×2 (03:03→12:14)
[2017-07-06 07:53] LABS: CHOLESTEROL 117.51 mg/dL (0-200); TRIGLYCERIDES 75 mg/dL (<150)
[2017-07-06 08:04] LABS: DIRECT LDL 63 mg/dL (<100)
[2017-07-06] MEDS: TIZANIDINE HCL 4 MG TABLET PO SCH ×2 (09:03→13:58)
[2017-07-06] MEDS: MULTIVITAMIN TABLET PO SCH (09:40)
[2017-07-06] MEDS: CITALOPRAM HYDROBROMIDE 20 MG TABLET PO SCH (09:41)
[2017-07-06] MEDS: MELOXICAM 7.5 MG TABLET PO SCH (09:41)
[2017-07-06] MEDS: ASPIRIN 81 MG TABLET, CHEWABLE PO SCH (09:41)
[2017-07-06] MEDS: ENOXAPARIN SODIUM INJ 40 MG/0.4 ML DISP.SYRIN SUBCUT SCH (09:41)
--- NOTE | 2017-07-06 13:39 | RADIOLOGY REPORT (SQ) ---
EXAM DESCRIPTION: MRI ABDOMEN WITHOUT COMPLETED DATE/TIME: 07/06/2017 12:59 pm REASON FOR STUDY: MRCP R10.84 GENERALIZED ABDOMINAL PAIN K85.00 IDIOPATHIC ACUTE PANCREATITIS WITH OUT NECROSIS OR INF COMPARISON: 07/05/2017. TECHNIQUE: Noncontrast MRCP. Source and MIP images reviewed. LIMITATIONS: Patient motion. FINDINGS: GALLBLADDER: Normal. INTRAHEPATIC DUCTS: Nondilated. EXTRAHEPATIC DUCTS: Common duct is normal caliber. No ductal filling defects noted. PANCREAS: Generally homogeneous, no gross mass or significant signal alteration. No surrounding infl ammatory changes or fluid. Pancreatic duct is not dilated. LIVER, SPLEEN, KIDNEYS, ADRENALS: No significant abnormality. VESSELS: No evidence of aneurysm. Grossly appropriate flow voids in the major vascular structures. LUNG BASES: Grossly clear. OTHER: No other significant finding. IMPRESSION: NORMAL HEPATOBILIARY SYSTEM. NO STONES OR COMMON DUCT ABNORMALITIES. TECHNICAL DOCUMENTATION: JOB ID: [id number] [employer]- All Rights Reserved Reading location - IP/workstation name: [email or web address]
[2017-07-06 15:01] VITALS: BP 138/70
--- NOTE | 2017-07-06 17:41 | PDOC H&P ---
History of Present Illness Admission Date/PCP: 07/05/17 13:13 YAN TOM MD History of Present Illness: SEVERIANO SEGUNDO is a 61 year old male, he came to the emergency room for evaluation of vomiting and abdominal pain, he has a history of chronic nephrolithiasis, history of calcium oxalate kidney stone 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 In the emergency room he was evaluated he was found to have elevated serum lipase, it was felt that he may have acute pancreatitis because of the elevated serum lipase he was admitted for further evaluation. A CAT scan of the abdomen and pelvis was done without contrast it showed nonobstructing kidney calculi, the pancreas was normal. Also had MRI and MRCP, the MRCP showed normal hepatobiliary system no stones or common duct abnormalities the pancreas was normal it was homogeneous there was no mass or signal alteration there was no surrounding inflammatory changes the pancreatic duct is not dilated. He had similar presentation last year when he was admitted on 11/25/2016 underrepresentation he had ureteropelvic stone and also at that time he had elevated serum lipase the CAT scan of the abdomen and pelvis with contrast that was done at the time was also normal there was no evidence of inflamed pancreas. He has no kidney stone, he does not drink alcohol, he has no hyperlipidemia he does not of the conventional causes of acute pancreatitis. There is no evidence of structural disease of the pancreas both on the CAT scan and also MRI, the elevated serum lipase is not as a result of inflamed pancreas, it is probably related to the kidney stone. He also add endoscopic ultrasonic evaluation of the pancreas outpatient this also was normal. I reassured him that the elevated lipase is not related to inflamed pancreas is most likely related to the kidney stone and that he should continue to take the citrate of magnesium on a regular basis probably with soda and he will also be referred to urology outpatient. He also tolerated regular diet throughout hospital stay he was not kept n.p.o. for this admission. Patient was brought in for observation and he be discharged home Past Medical History Renal/ Medical History: Reports: Nephrolithiasis Psychiatric Medical History: Reports: Depression Social History Smoking Status: Never Smoker Frequency of Alcohol Use: None Hx Recreational Drug Use: No Drugs: None Hx Prescription Drug Abuse: No - Advance Directive Resuscitation Status: Full Code Family History Family History: Reviewed & Not Pertinent Parental Family History Reviewed: Yes Children Family History Reviewed: Yes Sibling(s) Family History Reviewed.: Yes Medication/Allergy Home Medications: Aspirin [Aspirin 81 mg Chewable Tablet] 81 mg PO DAILY 11/25/16 Citalopram Hydrobromide [Celexa 40 mg Tablet] 40 mg PO DAILY 11/25/16 Meloxicam [Mobic] 7.5 mg PO DAILY 11/25/16 Multivitamin [Tab-A-Ti (Multiple Vitamin) Tablet] 1 tab PO DAILY 11/25/16 Oxycodone HCl/Acetaminophen [Percocet 10-325 mg Tablet] 1 tab PO Q6HP PRN MDD LAST FILLED 06/16/17 11/25/16 Tizanidine HCl [Zanaflex] 4 mg PO BIDBL 07/05/17 Tizanidine HCl [Zanaflex] 4 mg PO QHS MDD 1-2 TABS AT BEDTIME 07/05/17 Allergies/Adverse Reactions: No Known Allergies Allergy (Verified 11/24/16 17:14) Review of Systems Constitutional: ABSENT: chills, fever(s), headache(s), weight gain, weight loss Eyes: ABSENT: visual disturbances Ears: ABSENT: hearing changes Cardiovascular: ABSENT: chest pain, dyspnea on exertion, edema, orthropnea, palpitations Respiratory: ABSENT: cough, hemoptysis Gastrointestinal: PRESENT: abdominal pain, vomiting. ABSENT: constipation, diarrhea, hematemesis, hematochezia, nausea Genitourinary: ABSENT: dysuria, hematuria Musculoskeletal: ABSENT: joint swelling Integumentary: ABSENT: rash, wounds Neurological: ABSENT: abnormal gait, abnormal speech, confusion, dizziness, focal weakness, syncope Psychiatric: ABSENT: anxiety, depression, homidical ideation, suicidal ideation Endocrine: ABSENT: cold intolerance, heat intolerance, menstrual abnormalities, polydipsia, polyuria Hematologic/Lymphatic: ABSENT: easy bleeding, easy bruising, lymphadenopathy Physical Exam Vital Signs: Temp Pulse Resp BP Pulse Ox 98.8 F 47 L 16 138/70 H 100 07/06/17 14:57 07/06/17 14:57 07/06/17 14:57 07/06/17 14:57 07/06/17 14:57 Intake & Output 07/05/17 07/06/17 07/07/17 06:59 06:59 06:59 Intake Total 751 Output Total 1000 Balance -249 Weight 65.7 kg General appearance: PRESENT: no acute distress, well-developed, well-nourished Head exam: PRESENT: atraumatic, normocephalic Eye exam: PRESENT: conjunctiva pink, EOMI, PERRLA Ear exam: PRESENT: normal external ear exam Mouth exam: PRESENT: moist, tongue midline Neck exam: PRESENT: full ROM Respiratory exam: PRESENT: clear to auscultation [place] Cardiovascular exam: PRESENT: RRR, +S1, +S2 Vascular exam: PRESENT: normal capillary refill GI/Abdominal exam: PRESENT: normal bowel sounds, soft Rectal exam: PRESENT: deferred Neurological exam: PRESENT: alert, awake, oriented to person, oriented to place , oriented to time, oriented to situation, CN II-XII grossly intact Psychiatric exam: PRESENT: appropriate affect, normal mood Skin exam: PRESENT: dry, intact, warm Results Laboratory Results: 07/06/17 07/06/17 05:59 05:59 Triglycerides 75 Cholesterol 117.51 LDL Cholesterol Direct 63 VLDL Cholesterol 15.0 HDL Cholesterol 37 L Lipase 2934.6 H Impressions: Abdomen/Pelvis CT 07/05/17 00:00 IMPRESSION: Nonobstructing renal calculi. Abdomen MRI 07/06/17 00:00 IMPRESSION: NORMAL HEPATOBILIARY SYSTEM. NO STONES OR COMMON DUCT ABNORMALITIES. Assessment & Plan - Diagnosis (1) Nephrolithiasis Is this a current diagnosis for this admission?: Yes (2) Serum lipase elevation Is this a current diagnosis for this admission?: Yes Plan: The elevated serum lipase is not from pancreatitis it is probably related to the kidney stone (3) Abdominal pain Qualifiers: Abdominal location: unspecified location Qualified Code(s): R10.9 - Unspecified abdominal pain Is this a current diagnosis for this admission?: Yes
--- NOTE | 2017-07-06 17:45 | PDOC DISCHARGE SUMMARY ---
General - Admit/Disc Date/PCP Admission Date/Primary Care Provider: 07/05/17 13:13 YAN TOM MD Discharge Date: 07/13/17 - Discharge Diagnosis (1) Nephrolithiasis Is this a current diagnosis for this admission?: Yes (2) Serum lipase elevation Is this a current diagnosis for this admission?: Yes (3) Abdominal pain Is this a current diagnosis for this admission?: Yes - Additional Information Resuscitation Status: Full Code Home Medications: Aspirin [Aspirin 81 mg Chewable Tablet] 81 mg PO DAILY 11/25/16 Citalopram Hydrobromide [Celexa 40 mg Tablet] 40 mg PO DAILY 11/25/16 Meloxicam [Mobic] 7.5 mg PO DAILY 11/25/16 Multivitamin [Tab-A-Ti (Multiple Vitamin) Tablet] 1 tab PO DAILY 11/25/16 Oxycodone HCl/Acetaminophen [Percocet 10-325 mg Tablet] 1 tab PO Q6HP PRN MDD LAST FILLED 06/16/17 11/25/16 Tizanidine HCl [Zanaflex] 4 mg PO BIDBL 07/05/17 Tizanidine HCl [Zanaflex] 4 mg PO QHS MDD 1-2 TABS AT BEDTIME 07/05/17 History of Present Illness History of Present Illness: SEVERIANO SEGUNDO is a 61 year old male, he came to the emergency room for evaluation of vomiting and abdominal pain, he has a history of chronic nephrolithiasis, history of calcium oxalate kidney stone 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 In the emergency room he was evaluated he was found to have elevated serum lipase, it was felt that he may have acute pancreatitis because of the elevated serum lipase he was admitted for further evaluation. A CAT scan of the abdomen and pelvis was done without contrast it showed nonobstructing kidney calculi, the pancreas was normal. Also had MRI and MRCP, the MRCP showed normal hepatobiliary system no stones or common duct abnormalities the pancreas was normal it was homogeneous there was no mass or signal alteration there was no surrounding inflammatory changes the pancreatic duct is not dilated. He had similar presentation last year when he was admitted on 11/25/2016 underrepresentation he had ureteropelvic stone and also at that time he had elevated serum lipase the CAT scan of the abdomen and pelvis with contrast that was done at the time was also normal there was no evidence of inflamed pancreas. He has no kidney stone, he does not drink alcohol, he has no hyperlipidemia he does not of the conventional causes of acute pancreatitis. There is no evidence of structural disease of the pancreas both on the CAT scan and also MRI, the elevated serum lipase is not as a result of inflamed pancreas, it is probably related to the kidney stone. He also add endoscopic ultrasonic evaluation of the pancreas outpatient this also was normal. I reassured him that the elevated lipase is not related to inflamed pancreas is most likely related to the kidney stone and that he should continue to take the citrate of magnesium on a regular basis probably with soda and he will also be referred to urology outpatient. He also tolerated regular diet throughout hospital stay he was not kept n.p.o. for this admission. Patient was brought in for observation and he be discharged home Hospital Course Hospital Course: Patient was admitted for the management of abdominal pain associated with elevated serum lipase, he was extensively evaluated, check the history above for details Physical Exam Vital Signs: Temp Pulse Resp BP Pulse Ox 98.8 F 47 L 16 138/70 H 100 07/06/17 14:57 07/06/17 14:57 07/06/17 14:57 07/06/17 14:57 07/06/17 14:57 Intake & Output 07/05/17 07/06/17 07/07/17 06:59 06:59 06:59 Intake Total 751 Output Total 1000 Balance -249 Weight 65.7 kg General appearance: PRESENT: no acute distress, well-developed, well-nourished Head exam: PRESENT: atraumatic, normocephalic Eye exam: PRESENT: conjunctiva pink, EOMI, PERRLA Ear exam: PRESENT: normal external ear exam Mouth exam: PRESENT: moist, tongue midline Neck exam: PRESENT: full ROM Respiratory exam: PRESENT: clear to auscultation [place] Cardiovascular exam: PRESENT: RRR, +S1, +S2 Pulses: PRESENT: normal dorsalis pedis pul, +2 pedal pulses bilateral Vascular exam: PRESENT: normal capillary refill GI/Abdominal exam: PRESENT: normal bowel sounds, soft Rectal exam: PRESENT: deferred Neurological exam: PRESENT: alert, awake, oriented to person, oriented to place , oriented to time, oriented to situation, CN II-XII grossly intact Psychiatric exam: PRESENT: appropriate affect, normal mood Skin exam: PRESENT: dry, intact, warm Results Laboratory Results: 07/06/17 07/06/17 05:59 05:59 Triglycerides 75 Cholesterol 117.51 LDL Cholesterol Direct 63 VLDL Cholesterol 15.0 HDL Cholesterol 37 L Lipase 2934.6 H Impressions: Abdomen/Pelvis CT 07/05/17 00:00 IMPRESSION: Nonobstructing renal calculi. Abdomen MRI 07/06/17 00:00 IMPRESSION: NORMAL HEPATOBILIARY SYSTEM. NO STONES OR COMMON DUCT ABNORMALITIES. Qualifiers - * PATIENT BEING DISCHARGED WITH ANY OF THE FOLLOWING DIAGNOSIS: No VTE patient discharged on overlapping Therapy?: Yes
== END 2017-07-06 18:23 | disposition home or self-care (01) | DRG 694 ==
LOC: ER 23:16 → EH 07-05 00:53 → 2N 07-05 02:23 → OBSVTOIN 07-05 13:13
PROVIDERS: ADMIT Internal Medicine; ATTEND Internal Medicine
DX: N20.0 Calculus of kidney (principal); F32.9 Major depressive disorder, single episode, unspecified; R74.8 Abnormal levels of other serum enzymes; Z79.82 Long term (current) use of aspirin; Z87.442 Personal history of urinary calculi
CPT/HCPCS: 36415; 74176; 74181; 74183; 80053; 80061; 81001; 82150; 83690; 85025; 96361; 96374; 96375; 99285; A9576; G0378; J1170; J1650; J2270; J2405; J3490; J7030

== ENCOUNTER 2018-03-30 19:21 | Emergency (ER) | payer MEDICARE, OTHER ==
[2018-03-30] MEDS ORDERED: IBUPROFEN 600 MG TABLET PO ONE (21:08)
--- NOTE | 2018-03-30 21:10 | ER Document Report ---
ED Hand/Wrist Injury - General Chief Complaint: Wrist Pain Stated Complaint: LEFT WRIST PAIN Time Seen by Provider: 03/30/18 21:05 Primary Care Provider: YAN TOM MD [Primary Care Provider] - Follow up as needed EDWARD COOL MD [ACTIVE STAFF] - Follow up as needed Mode of Arrival: Ambulatory Information source: Patient Notes: 62-year-old male presents to ED for complaint of pain in his left wrist and hand. He states this started about 3 hours ago while he was laying back in a car. He states he woke up in severe pain that was radiating up his arm. He states he has not injured and he has not lifted anything he has not laid on it. He states the pain is still present. He states he has a history of arthritis and disc problems no other past medical history. TRAVEL OUTSIDE OF THE [place] IN LAST 30 DAYS: No - HPI Injury to: Arm, Hand, Wrist Onset: This evening Where: Outdoors, Public place Timing: Still present Quality of pain: Sharp, Throbbing Severity: Moderate Pain Level: 3 - Related Data Allergies/Adverse Reactions: No Known Allergies Allergy (Verified 11/24/16 17:14) Past Medical History - General Information source: Patient - Social History Smoking Status: Never Smoker Frequency of alcohol use: None Drug Abuse: None Lives with: Family Family History: Reviewed & Not Pertinent Patient has suicidal ideation: No Patient has homicidal ideation: No - Past Medical History Cardiac Medical History: Reports: None Pulmonary Medical History: Reports: None EENT Medical History: Reports: None Neurological Medical History: Reports: None Endocrine Medical History: Reports: None Renal/ Medical History: Reports: Hx Kidney Stones Malignancy Medical History: Reports None GI Medical History: Reports: None Musculoskeletal Medical History: Reports Hx Arthritis, Reports Hx Musculoskeletal Deformity Skin Medical History: Reports None Psychiatric Medical History: Reports: Hx Depression Traumatic Medical History: Reports: None Infectious Medical History: Reports: None Surgical Hx: Negative Past Surgical History: Reports: None - Immunizations Hx Diphtheria, Pertussis, Tetanus Vaccination: Yes Review of Systems - Review of Systems Constitutional: No symptoms reported EENT: No symptoms reported Cardiovascular: No symptoms reported Respiratory: No symptoms reported Gastrointestinal: No symptoms reported Genitourinary: No symptoms reported Male Genitourinary: No symptoms reported Musculoskeletal: Joint pain - Pain in left wrist and hand radiating up his arm Skin: No symptoms reported Hematologic/Lymphatic: No symptoms reported Neurological/Psychological: No symptoms reported -: Yes All other systems reviewed and negative Physical Exam - Vital signs Vitals: Temp Pulse Resp BP Pulse Ox 98.1 F 53 L 16 150/71 H 98 03/30/18 19:51 03/30/18 19:51 03/30/18 19:51 03/30/18 19:51 03/30/18 19:51 Interpretation: Normal - General General appearance: Appears well, Alert - HEENT Head: Normocephalic, Atraumatic Eyes: Normal Pupils: PERRL - Respiratory Respiratory status: No respiratory distress Chest status: Nontender Breath sounds: Normal Chest palpation: Normal - Cardiovascular Rhythm: Regular Heart sounds: Normal auscultation Murmur: No - Abdominal Inspection: Normal Distension: No distension Bowel sounds: Normal Tenderness: Nontender Organomegaly: No organomegaly - Back Back: Normal, Nontender - Extremities General upper extremity: Normal inspection, Normal color, Normal ROM, Normal tem perature General lower extremity: Normal inspection, Nontender, Normal color, Normal ROM, Normal temperature, Normal weight bearing. No: Anitra's sign Wrist: Tender, Limited ROM. No: Axial load of thumb pain, Deformity, Dislocation, Ecchymosis Hand: Tender, No evidence of human bite, No evidence of FB. No: Abrasion, Defor mity, Dislocation, Ecchymosis, Instability, Laceration, Swelling - Neurological Neuro grossly intact: Yes Cognition: Normal Orientation: AAOx4 [place] Coma Scale Eye Opening: Spontaneous [place] Coma Scale Verbal: Oriented [place] Coma Scale Motor: Obeys Commands [place] Coma Scale Total: 15 Speech: Normal Motor strength normal: LUE, RUE, LLE, RLE Sensory: Normal - Psychological Associated symptoms: Normal affect, Normal mood - Skin Skin Temperature: Warm Skin Moisture: Dry Skin Color: Normal Course - Re-evaluation Re-evalutation: 03/31/18 01:51 X-ray was discussed with patient and cock-up splint applied to his left wrist due to the results of the x-ray that showed probable carpal tunnel syndrome. Patient and were instructed on need to follow-up with orthopedics for this diagnosis. Patient was instructed to elevate ice and use splint for pain. Patient was able to verbalize understanding and agreement with treatment plan before discharge. - Vital Signs Vital signs: Temp Pulse Resp BP Pulse Ox 98.4 F 55 L 18 145/68 H 99 03/30/18 23:11 03/30/18 23:11 03/30/18 23:11 03/30/18 23:11 03/30/18 23:11 - Diagnostic Test Radiology reviewed: Image reviewed, Reports reviewed Procedures - Immobilization Left Wrist Time completed: 23:04 Pre-Proc Neuro Vasc Exam: Normal Immobilizer type: Cock-up Performed by: Other - area secretary Post-Proc Neuro Vasc Exam: Normal Alignment checked and good: Yes Discharge - Discharge Clinical Impression: Carpal tunnel syndrome of left wrist Condition: Stable Disposition: HOME, SELF-CARE Additional Instructions: Carpal Tunnel Syndrome Your examination suggests carpal tunnel syndrome. This syndrome is due to pressure on a nerve in the wrist. The pressure may be caused by an old injury, hard work using the wrist, work involving repeated motions of the hand, wrist positions that keep pressure on the joint, or arthritis in the wrist. Typical symptoms are tingling, numbness, and pain in the palm, thumb, index and middle fingers, and one side of the ring finger. Often a splint, ice packs, and antiinflammatory medication make the symptoms go away. If the physician feels that your problem is chronic, you will be referred to a specialist for further care. If symptoms do not go away, carpal tunnel syndrome may require surgery. You should call the doctor if pain increases, if you develop difficulty using the thumb or fingers, or if major swelling occurs. SPLINT PRECAUTIONS: A splint has been placed. This will protect the area while healing begins. Your problem does NOT normally require a cast. It MUST, however, be held still! Keep the splint on ALL THE TIME until instructed to remove it by the doctor. As you begin to use the area, be careful. You shouldn't do anything which causes discomfort -- you may disturb the injury even with the splint in place. After the initial period of rest and elevation, if splint does not prevent pain when you move, come back. You may require placement of a different splint, or a cast. If there is unexpected severe pain, or numbness, discoloration, or swelling beyond the splint, you should return at once. If you feel that the splint has broken or become loose, come back. ICE & ELEVATION: Apply ice packs frequently against the painful area. Many different schedules are recommended, such as "20 minutes on, 20 minutes off" or "one hour ice, two hours rest." If you need to work, you may need to go longer between ice treatments. You should plan to have the area ice packed AT LEAST one-fourth of the time. The ice should be applied over the wrap, tape, or splint, or over a layer of cloth -- not directly against the skin. Some ice bags have a built-in cloth and can be put directly on the skin. Your injured part should be elevated as much as possible over the next 48 hours. Try to keep the injury above the level of the heart. Avoid use of the injured area. Elevation and rest will decrease the swelling. USE OF [id number] IBUPROFEN: Ibuprofen (Advil, Nuprin, Medipren, Motrin IB) is a medication for fever and pain control. In addition, it has anti- inflammatory effects which may be beneficial, especially in the treatment of injuries. It's best to take ibuprofen with food. Persons with ulcer disease or allergy to aspirin should notify their physician of this before taking ibuprofen. Ibuprofen can be given every four to six hours, for a total of four doses daily. Age Pain or fever dose Antiinflammatory dose 6-8 yr 200 mg (1 tab) 200 mg (1 tab) 9-11 yr 200 mg (1 tab) 200-400 mg (1-2 tab) 11-14 yr 200-400 mg (1-2 tab) 400 mg (2 tab) 15-adult 400 mg (2 tab) 600 mg (3 tab) FOLLOW-UP CARE: If you have been referred to a physician for follow-up care, call the physicians office for an appointment as you were instructed or within the next two days. If you experience worsening or a significant change in your symptoms, notify the physician immediately or return to the Emergency Department at any time for re-evaluation. Forms: Elevated Blood Pressure Referrals: YAN TOM MD [Primary Care Provider] - Follow up as needed EDWARD COOL MD [ACTIVE STAFF] - Follow up as needed
--- NOTE | 2018-03-30 21:35 | RADIOLOGY REPORT (SQ) ---
EXAM DESCRIPTION: XR LEFT HAND 3 OR MORE VIEWS COMPLETED DATE/TME: 03/30/2018 21:05 CLINICAL HISTORY: 62 years, Male, pain for 3 hours no injuries COMPARISON: None. NUMBER OF VIEWS: TECHNIQUE: LIMITATIONS: None. FINDINGS: There are considerable degenerative changes involving the first carpometacarpal joint. No fracture or dislocation. Mineralization of bone appears normal. IMPRESSION: Considerable degenerative changes involving the first carpometacarpal joint. copyright 2010 [employer]- All Rights Reserved
--- NOTE | 2018-03-30 21:38 | RADIOLOGY REPORT (SQ) ---
EXAM DESCRIPTION: XR WRIST 3 OR MORE VIEWS COMPLETED DATE/TME: 03/30/2018 21:05 CLINICAL HISTORY: 62 years, Male, pain for 3 hours no injuries COMPARISON: None. NUMBER OF VIEWS: TECHNIQUE: LIMITATIONS: None. FINDINGS: There are considerable degenerative changes involving the first carpometacarpal joint. There are no degenerative changes involving the wrist joint. No fracture or dislocation. Mineralization of bone appears normal. IMPRESSION: Considerable degenerative changes involving the first carpometacarpal joint. copyright 2010 [employer]- All Rights Reserved
[2018-03-30 23:12] VITALS: BP 145/68
== END 2018-03-30 23:07 | disposition home or self-care (01) ==
LOC: ER 19:21
DX: G56.02 Carpal tunnel syndrome, left upper limb (principal); M79.642 Pain in left hand; Z87.442 Personal history of urinary calculi
CPT/HCPCS: 99283; 73130; 73110; L3908; A9270

== ENCOUNTER → 2018-07-05 | Outpatient (CLI) | payer MEDICARE ==
--- NOTE | 2018-07-06 08:58 | RADIOLOGY REPORT (SQ) ---
EXAM DESCRIPTION: MRI CERVICAL SPINE WITHOUT COMPLETED DATE/TIME: 07/05/2018 8:41 pm REASON FOR STUDY: M54.2 CERVICALGIA M54.2 CERVICALGIA COMPARISON: MRI cervical spine 03/26/2016, 04/17/2014 Cervical spine radiographs 02/11/2014 TECHNIQUE: Sagittal and Axial imaging includes T1, T2, STIR and gradient echo sequences. LIMITATIONS: Motion artifact FINDINGS: ALIGNMENT: Normal. VERTEBRAE: Intact. BONE MARROW: Diffuse fatty reactive vertebral body endplate changes DISCS: Diffuse decreased T2 weighted intervertebral disc signal. Multilevel cervical disc space loss of height HARDWARE: None in the spine. CORD AND BASE OF BRAIN: Normal in size and signal intensity. SOFT TISSUES: No soft tissue masses. C1-C2: No significant spinal stenosis. C2-C3: No significant spinal stenosis or exit foraminal stenosis. C3-C4: Broad diffuse posterior disc bulge and bony spurring partly effaces the ventral thecal sac and abuts but the ventral cord without cord flattening. Borderline central canal stenosis. High-grade bilateral foraminal narrowing from facet and uncovertebral hypertrophy C4-C5: Mild diffuse posterior disc bulge and bony spurring partly effaces the ventral thecal sac with out central stenosis or cord flattening. Moderate to high-grade right, high-grade left foraminal magalys rowing from facet and uncovertebral hypertrophy C5-C6: Broad diffuse posterior disc bulge and bony spurring partly effaces the ventral thecal sac wit hout cord flattening or central stenosis. High-grade bilateral foraminal narrowing from facet and un covertebral hypertrophy C6-C7: Broad diffuse posterior disc bulging is present with a small central disc protrusion partly ef facing the ventral thecal sac. No significant central stenosis or cord flattening. Mild right, mode rate left foraminal narrowing C7-T1: Minimal posterior disc bulging, no significant central stenosis. High-grade bilateral foramin al narrowing from facet and uncovertebral hypertrophy UPPER THORACIC: There is disc space loss of height and posterior disc bulging and bilateral facet hyp ertrophy at T1-2 and T2-3 with high-grade bilateral foraminal narrowing at these levels OTHER: No other significant finding. IMPRESSION: Multilevel significant foraminal stenosis TECHNICAL DOCUMENTATION: JOB ID: [id number] [employer]- All Rights Reserved Reading location - IP/workstation name: [email or web address]
== END ==
LOC: RAD 17:57
PROVIDERS: ATTEND Nurse Practitioner Family
DX: M54.2 Cervicalgia (principal)
CPT/HCPCS: 72141